=== PATIENT | female | born 1955 | race Caucasian/White ===

== ENCOUNTER 2016-08-27 02:19 | Inpatient (IN) ==
[2016-08-27] MEDS ORDERED: MORPHINE IV PRN (07:24)
[2016-08-27] MEDS ORDERED: NORCO-10 PO PRN (07:24)
[2016-08-27] MEDS ORDERED: LASIX PO SCH (09:00)
[2016-08-27] MEDS ORDERED: PLAQUENIL PO SCH (09:00)
[2016-08-27] MEDS ORDERED: PERICOLACE PO SCH (09:00)
[2016-08-27] MEDS ORDERED: BUSPAR PO SCH (09:00)
[2016-08-27] MEDS ORDERED: GABAPENTIN 800 MG PO SCH (09:00)
[2016-08-27] MEDS ORDERED: [UNRECOGNIZED DRUG - OTHER] PO SCH (09:00)
[2016-08-27] MEDS ORDERED: SYNTHROID PO SCH (09:00)
[2016-08-27] MEDS ORDERED: [UNRECOGNIZED DRUG - REMARK] NS SCH (09:00)
[2016-08-27] MEDS ORDERED: XANAX PO SCH (09:00)
[2016-08-27] MEDS ORDERED: LR 1,000 ML ONE (10:05)
[2016-08-27] MEDS ORDERED: PEPCID ONE (10:29)
[2016-08-27] MEDS ORDERED: REGLAN ONE (10:29)
[2016-08-27] MEDS ORDERED: LYRICA ONE (10:40)
[2016-08-27] MEDS ORDERED: COLACE ONE (10:40)
--- NOTE | 2016-08-27 12:34 | HISTORY AND PHYSICAL ---
CHIEF COMPLAINT: Left knee pain. HISTORY OF PRESENT ILLNESS: This is a 61-year-old female who had a left total knee arthroplasty performed in June. She originally did well and recently started having pain and swelling. She has been treated conservatively without relief. She was evaluated in the office and found to need removal of the total knee and placement of an antibiotic spacer. The surgical procedure, as well as risks and benefits were explained to the patient and at this time agreed to proceed. ALLERGIES: Penicillin and sulfa. PAST MEDICAL HISTORY: Serious illnesses: Lupus, thyroid disorder, vague history of diabetes, and obesity. PAST SURGICAL HISTORY: Breast reduction, left knee, right foot, and a tibial plateau fracture. MEDICATIONS: Xanax 1 three times a day, BuSpar 15 twice a day, Caltrate 1 a day, Flonase allergy 2 twice a day, Lasix 20 once a day, Neurontin 100 three times a day, Plaquenil 200 twice a day, probiotic 1 a day, Synthroid 175 one a day, Requip 2 at night, Senokot 1 a day. REVIEW OF SYSTEMS: HEENT: No history of CVA, migraines, loss of consciousness. She does have sleep apnea. Heart: No history of heart abnormalities. Abdomen: No history of ulcer or digestive disorders. She does have history of kidney stones. Musculoskeletal: Has history of fibromyalgia and lupus. PHYSICAL EXAMINATION: GENERAL: This is a 61-year-old female, alert and oriented. Her primary care physician is Dr. Wilks. HEENT: Pupils equal, round, reactive. NECK: Fair range of motion without adenopathy. RESPIRATORY: Respirations equal and unlabored. Clear bilaterally. HEART: Regular rate and rhythm. ABDOMEN: Soft, nontender. Bowel sounds present. EXTREMITIES: She complains of pain in her left knee area. There some swelling and discoloration around her knee. She has good sensation and pulses distally. As far as the incision is, it is well healed. IMPRESSION: Infected left total knee. PLAN: Removal of left total knee compliance with placement of antibiotic spacer. Dictated by Terry Juarez RN for Nitin Wheeler MD This chart was documented by the indicated scribe, Terry Juarez RN and accurately reflects the services I performed and decisions made by me, Nitin Wheeler MD, as attested by the provider's signature. cc: Nitin Wheeler MD
[2016-08-27] MEDS ORDERED: TORADOL ONE (14:00)
[2016-08-27] MEDS ORDERED: VANCOMYCIN ONE (14:00)
[2016-08-27] MEDS ORDERED: NEOSPORIN G.U. IRRIGANT ONE (14:01)
[2016-08-27] MEDS ORDERED: MARCAINE 0.25% PF/EPI 1:200,000 ONE (14:01)
[2016-08-27] MEDS ORDERED: EXPAREL 1.3% ONE (14:01)
[2016-08-27] MEDS ORDERED: CYKLOKAPRON 1,000 MG/NS 0 MG/0 ML IVPB ONE (14:01)
[2016-08-27] MEDS ORDERED: SODIUM CHLORIDE 0.9% ONE (14:01)
[2016-08-27] MEDS ORDERED: ZOFRAN IV PRN (14:48)
[2016-08-27] MEDS ORDERED: SODIUM CHLORIDE 0.9% INJ PRN (15:36)
[2016-08-27 15:55] LABS: URINE MICRO REVIEW NEEDED? NO; URINE SOURCE CATH
[2016-08-27 16:01] LABS: BILIRUBIN URINE NEGATIVE (NEGATIVE); BLOOD URINE TRACE (NEGATIVE); COLOR YELLOW; GLUCOSE URINE NEGATIVE (NEGATIVE); LEUKOCYTES URINE SMALL (NEGATIVE); NITRITE URINE POSITIVE (NEGATIVE); PH URINE 5.5; PROTEIN URINE 30 mg/dL (NEGATIVE); SP GRAVITY URINE 1.012; TURBIDITY URINE CLEAR (CLEAR); UROBILINOGEN URINE NORMAL (NORMAL)
[2016-08-27 16:02] LABS: UR EPITHELIAL CELLS <10 /HPF (<10); URINE BACTERIA 2+ /HPF; URINE CULTURE NEEDED? YES; URINE RBC <10 /HPF (<10); URINE WBC <10 /HPF (<10)
--- NOTE | 2016-08-27 16:11 | Diag Imaging Result Document ---
PROCEDURE NAME: CHEST-PORTABLE - 08/27/2016 PORTABLE CHEST: COMPARISON: 07/10/2015. FINDINGS: Mild central vascular prominence. The heart is not enlarged. No pleural effusions identified. No consolidation. This is basilar atelectasis. IMPRESSION: Mild pulmonary edema with basilar atelectasis.
--- NOTE | 2016-08-27 16:16 | CONSULTATION ---
DATE OF CONSULTATION: 08/27/2016 REASON FOR CONSULTATION: minimally responsive HISTORY OF PRESENT ILLNESS: Ms. Ruby is a 61-year-old, female who has had a left total knee arthroplasty performed in June 2015. Originally she had done well. She had some recent pain and swelling in the left knee, she had been treated conservatively without relief. She was evaluated in the office and found to be in need of removal of her total knee and placement of an antibiotic spacer. The patient was set for surgery today with Dr. Wheeler. However when she was brought in to the OR she was found to be minimally responsive and we were called for consultation as well as re-surgery clearance. Additional past medical history: Hypertension, sleep apnea, kidney stones, urinary tract infections, neuropathy, fibromyalgia, degenerative joint disease, diabetes mellitus type 2, anxiety and depression, obesity, hypothyroidism, chronic pain, lupus, Raynaud syndrome, and a history of MRSA Upon physical examination in the surgery holding, the patient was found to be very lethargic. She would only wake up to physical stimuli, along with saying her name. She would not say her name. She did squeeze my hand. She weakly wiggled her toes. However she would go right back to sleep. She did not answer any questions. Her pupils were equal and reactive. EKG was obtained, read by Dr. Skinner. It was unremarkable. Her most recent laboratory data was from 08/14, where she had an hemoglobin and hematocrit of 12 and 36, platelet count of 425,000, chemistry of 130, potassium of 3.9, a BUN of 18, and a creatinine of 1.0. Blood glucose was 113. Her C-reactive protein 78.45, and her carbon dioxide was 24. Again these labs were from 08/14. We have put in for new labs and diagnostics as well as an ABG. The patient will be transferred to the ICU for close monitoring. PAST MEDICAL HISTORY: 1. Hypertension. 2. Sleep apnea. 3. Kidney stones. 4. UTI. 5. Neuropathy. 6. Fibromyalgia. 7. Degenerative joint disease. 8. Diabetes mellitus type 2. 9. Anxiety. 10. Depression. 11. Obesity. 12. Hypothyroidism. 13. Chronic pain. 14. Lupus. 15. Raynaud syndrome. 16. MRSA history. PAST SURGICAL HISTORY: 1. Breast reduction. 2. Left knee. 3. Right foot. 4. Tibial plateau fracture. HOME MEDICATIONS: As per Dr. Wheeler's list: 1. Xanax 3 times a day. 2. BuSpar 15 twice a day. 3. Caltrate 1 a day. 4. Flonase Allergy twice a day. 5. Lasix 20 once a day. 6. Neurontin 100 three times a day. 7. Plaquenil 200 twice a day. 8. Probiotic 1 a day. 9. Synthroid 175 once a day. 10. Requip 2 at night. 11. Senokot 1 a day. ALLERGIES: To penicillin and sulfa. SOCIAL HISTORY: Unknown. FAMILY HISTORY: Unknown. REVIEW OF SYSTEMS: Ten point review of systems complete and negative, except for those mentioned in the HPI. PHYSICAL EXAMINATION: Vital Signs: Last set of vital signs: Temperature was 99.3 degrees, heart rate 93, respiration 18, blood pressure 161/78, O2 was 93%. General: Ms. Ruby is a 61-year- old, morbidly obese female who is lying in the bed, minimally responsive. HEENT: Pupils are equal, round, and reactive. CV: S1-S2 appreciated. Regular rate and rhythm. Respiratory: Lung sounds clear bilaterally. The patient is currently on non-rebreather. Abdominal: Abdomen is obese, soft, nontender, nondistended. Positive bowel sounds 4 quadrants. Extremities: She does have a marked area on her left knee where she was about to have surgery. There is swelling and discoloration around that left knee. She does have bilateral pedal pulses. She has some generalized lower extremity swelling. DIAGNOSTIC DATA: Laboratory and diagnostics are as per HPI from the as well as pending. ASSESSMENT AND PLAN: 1. Acute respiratory failure. We are waiting to obtain a stat chest x-ray as well as ABG, Pulmonary consult. The patient will remain on non-rebreather until we have the results of the ABG. She will be moved to the ICU. We will start bronchodilators p.r.n. for wheezing. 2. Encephalopathy, whether it be toxic versus metabolic. awaiting CT scan of the head, We are awaiting labs as well as diagnostics. Will continue in the ICU with strict neuro checks. 3. Infected hardware of left knee. Was set for removal of her left total knee and compliant with placement of antibiotic spacer. However the patient was found to be minimally responsive and the surgery was canceled. Will start IV antibiotic therapy after cultures have been obtained. Will consult for further antibiotic recommendations. 4. Early sepsis 2nd to #3 or others awaiting further lab data. 5. Obstructive sleep apnea. Aware. 6. Diabetes Mellitus type 2. Will start the patient on sliding scale insulin. 7. Methicillin-resistant Staphylococcus aureus history. Aware. 8. Further recommendation following physician evaluation. Follow laboratory data. Serial cardiac enzymes. ABG. Chest x-ray. Head CT. Dictated by MATT Carrington for Rose Mary Skinner MD cc: MD Nitin Cervantes MD David Francis, MD The patient was seen and examined by me. I agree with the assessment and plan as dictated. MTDD
[2016-08-27 16:30] LABS: ALLEN TEST YES; BE 7.2 mmoll (-3.0-3.0); BLOOD TYPE ARTERIAL; DRAW SITE R RADIAL; METHB 1.8 % (0.0-1.5); MODALITY VENTIMASK; O2(CT) 15.2 mL/dL (15.0-23.0); PCO2(98.6) 59 mmHg (35-45); PO2(98.6) 77 mmHg (60-100); SAMPLE BLOOD; SAO2 97.4 % (95.0-100.0); THB 11.4 g/dL (11.5-17.4); pH(98.6) 7.37 (7.35-7.45)
[2016-08-27 16:32] LABS: BASO% 1.1 % (0.0-0.8); EOS# 0.06 X1000 (0.0-0.7); EOS% 0.5 % (0.0-10.0); HEMATOCRIT 31.4 % (37.0-47.0); HEMOGLOBIN 10.2 g/dL (12.0-16.0); IMM GRAN% 8.2 % (0.0-0.5); LYMPH# 2.29 X1000 (1.2-3.4); LYMPH% 18.8 % (20.5-51.1); MANUAL DIFF NEEDED? YES; MCHC 32.5 g/dL (33-37); MCV 86.3 FL (81-99); MONO# 0.77 X1000 (0.11-0.59); MONO% 6.3 % (1.7-9.3); MPV 9.7 FL (7.4-10.4); NEUT% 65.1 % (42.2-75.2); PLT 341 X1000 (130-400); RBC 3.64 XMIL (4.2-5.4)
[2016-08-27 16:36] LABS: ALBUMIN 3.3 g/dL (3.5-5.0); CALCIUM 8.9 mg/dL (8.8-10.2); MAGNESIUM 2.3 mg/dL (1.5-2.7); POTASSIUM 3.9 mmol/L (3.5-5.1); TOTAL BILIRUBIN 0.22 mg/dL (0.20-1.00); TOTAL PROTEIN 6.4 g/dL (6.3-8.3)
[2016-08-27 16:37] LABS: INR 1.05; PROTIME 11.1 Seconds (9.2-11.7); PTT 24.3 Seconds (22.0-36.0)
[2016-08-27] MEDS ORDERED: FENTANYL ONE (16:39)
[2016-08-27] MEDS ORDERED: DIPRIVAN 1% ONE (16:39)
--- NOTE | 2016-08-27 16:47 | Diag Imaging Result Document ---
PROCEDURE NAME: HEAD W/O CONTRAST - 08/27/2016 CT HEAD WITHOUT CONTRAST: FINDINGS: A dose reduction protocol was used. No comparison exam. There is no evidence of intracranial hemorrhage, mass effect, midline shift or hydrocephalus. There is no evidence of infarct although acute infarcts may not be immediately visible. Visualized portions of paranasal sinuses and mastoid air cells appear clear. IMPRESSION: No visible acute intracranial abnormality. No hemorrhage or mass effect.
[2016-08-27 16:54] LABS: HEMOGLOBIN A1C 16.1 % (4.8-6.0)
[2016-08-27 17:00] LABS: BANDS 5 % (0-1); BASO 1 % (0-1); EOS 2 % (1-10); LYMPHS 16 % (21-51); METAMYELOCYTES 6 %; MONO 2 % (1-9)
[2016-08-27] MEDS: 1/2 NS 1,000 ML IV SCH (17:35)
[2016-08-27] MEDS ORDERED: VANCOMYCIN IV PER PHARMACY MISC SCH (18:15)
[2016-08-27] MEDS: DUONEB (A & A) INH SCH ×2 (19:32→22:40)
[2016-08-27] MEDS: AZACTAM 2 GM in NS 100 ML IV SCH (20:16)
--- NOTE | 2016-08-27 20:36 | CONSULTATION ---
DATE OF CONSULTATION: 08/27/2016 CONCLUSION: The patient was admitted to the hospital for surgery on the left knee, it was felt that it was infected. She developed altered mental status and the surgery was canceled. The cause of the altered mental status is uncertain. I think possible sepsis which might have arisen from the patient's left knee is a possibility also. Patient appears to have a urinary tract infection which may be causing her altered mental status. RECOMMENDATIONS: I agree with placing the patient on vancomycin, I have also ordered the patient to get aztreonam in view of the patient's severe penicillin allergy. Also, I have had gram- negative coverage with aztreonam. PRESENT ILLNESS: The patient is unable to provide a history. No family member is present. As mentioned above, the patient was admitted to the hospital to undergo removal of the patient's left total knee arthroplasty and placement of an antibiotic impregnated spacer. She had an altered mental status and the surgery was postponed. She is in the Intensive Care Unit now. She is somewhat obtunded. She did open her eyes and talk a little bit while I was performing an arthrocentesis of the left knee. The patient was unable to provide a history. The history was taken from a review of the chart. PAST MEDICAL HISTORY: Positive for systemic lupus, thyroid disease, diabetes and obesity. PAST SURGICAL HISTORY: Positive for breast reduction, left total knee arthroplasty, right foot surgery and a tibial plateau toe. ALLERGIES: Penicillin and sulfa. HOME MEDICATIONS: Xanax, BuSpar, Caltrate, Flonase, Lasix, Neurontin, Plaquenil, probiotics, Synthroid, Requip and Senokot. REVIEW OF SYSTEMS: Unable to obtain. PHYSICAL EXAMINATION: Vital Signs: Temperature is 97.6 degrees, pulse 67, respirations 20, blood pressure 163/83. General: This is an obese, middle-aged female. She is in no acute distress. Patient did not respond much to verbal stimuli. Head, eyes, ears, nose, throat: No drainage noted from the nose or ears. Neck: No meningismus. Thorax: Increased AP diameter of the chest. Lungs: Clear to auscultation. Cardiovascular: Heart rate is regular. Vascular: Peripheral pulses are palpable. Abdomen: Soft and nontender. Extremities: The left knee did seem swollen. I cleaned the knee and under sterile conditions I attempted an arthrocentesis. I only obtained a few drops of serous fluid which I have sent to the microbiology lab for culture. Neurologic: The patient is very lethargic. She did respond once when I aspirated her knee but it was just regular speech. She did not follow any of the requests I asked her to. There was no tremor. Integument: No rash noted. Thank you for the consultation. cc: MD Rose Mary Ramachandran MD
[2016-08-27] MEDS ORDERED: NON-FORMULARY MED (Ropinirole Hcl [Requip] 2 MG) PO SCH (21:00)
[2016-08-27] MEDS ORDERED: VANCOMYCIN 2,500 MG in NS 500 ML IV SCH (21:00)
[2016-08-27] MEDS: HUMULIN R SUBQ SCH (21:03)
[2016-08-28] MEDS: DUONEB (A & A) INH SCH ×6 (03:02→22:34)
[2016-08-28] MEDS: AZACTAM 2 GM in NS 100 ML IV SCH ×3 (03:47→20:03)
[2016-08-28 04:23] LABS: ALLEN TEST YES; BE 6.6 mmoll (-3.0-3.0); BLOOD TYPE ARTERIAL; DRAW SITE R RADIAL; METHB 1.7 % (0.0-1.5); O2(CT) 13.3 mL/dL (15.0-23.0); PO2(98.6) 76 mmHg (60-100); SAMPLE BLOOD; SAO2 98.5 % (95.0-100.0); THB 9.9 g/dL (11.5-17.4); pH(98.6) 7.41 (7.35-7.45)
[2016-08-28 04:24] LABS: MODALITY CANNULA; PCO2(98.6) 51 mmHg (35-45)
--- NOTE | 2016-08-28 05:14 | EKG Report ---
Test Performed on : 08/27/2016 2:51:40 PM Test Reason : chest pain Blood Pressure : / mmHG Vent. Rate : 066 BPM Atrial Rate : 066 BPM P-R Int : 166 ms QRS Dur : 084 ms QT Int : 440 ms P-R-T Axes : 035 -07 008 degrees QTc Int : 461 ms Normal sinus rhythm. Moderate voltage criteria for LVH, may be normal variant Borderline ECG When compared with ECG of 10-JUL-2015 12:06, Nonspecific T wave abnormality no longer evident in Lateral leads Confirmed by Brannon Grimm MD ([id number]) on 08/29/2016 12:04:45 PM
[2016-08-28] MEDS: PROTONIX IV SCH (06:12)
[2016-08-28] MEDS: HUMULIN R SUBQ SCH ×4 (06:12→20:11)
[2016-08-28] MEDS: SYNTHROID IV SCH (06:12)
[2016-08-28] MEDS: SODIUM CHLORIDE 0.9% INJ SCH (06:12)
[2016-08-28 07:10] LABS: BASO% 0.6 % (0.0-0.8); EOS# 0.09 X1000 (0.0-0.7); EOS% 0.7 % (0.0-10.0); HEMOGLOBIN 9.9 g/dL (12.0-16.0); IMM GRAN% 7.4 % (0.0-0.5); LYMPH# 2.03 X1000 (1.2-3.4); LYMPH% 16.8 % (20.5-51.1); MANUAL DIFF NEEDED? YES; MCH 27.9 PG (27-31); MCHC 31.9 g/dL (33-37); MCV 87.3 FL (81-99); MONO# 0.75 X1000 (0.11-0.59); MONO% 6.2 % (1.7-9.3); MPV 9.6 FL (7.4-10.4); NEUT% 68.3 % (42.2-75.2); PLT 378 X1000 (130-400); RBC 3.55 XMIL (4.2-5.4)
[2016-08-28 07:17] LABS: CALCIUM 8.4 mg/dL (8.8-10.2); POTASSIUM 3.9 mmol/L (3.5-5.1)
--- NOTE | 2016-08-28 07:45 | Diag Imaging Result Document ---
PROCEDURE NAME: CHEST-PORTABLE - 08/28/2016 SINGLE FRONTAL RADIOGRAPH OF THE CHEST: COMPARISON: 08/27/2016. FINDINGS: Inspiration is suboptimal. There is bibasilar subsegmental atelectasis that is similar to the previous study. Pulmonary venous congestion and/or vascular crowding is stable to marginally improved. No new consolidations are identified. Cardiac silhouette is stable. IMPRESSION: Stable to marginal improvement of pulmonary venous congestion. Otherwise, unchanged.
[2016-08-28 08:24] LABS: BANDS 2 % (0-1); HYPOCHROM 1+; LYMPHS 20 % (21-51); MONO 8 % (1-9)
[2016-08-28] MEDS ORDERED: SYNTHROID PO SCH (09:00)
[2016-08-28] MEDS: 1/2 NS 1,000 ML IV SCH ×2 (09:21→10:51)
--- NOTE | 2016-08-28 09:41 | CONSULTATION ---
DATE OF CONSULTATION: 08/28/2016 HISTORY OF PRESENT ILLNESS: Ms. Ruby is 61 years old, and she had a period of inattention and possible altered awareness yesterday. History from the patient is that she remembers feeling well in the morning, coming to the hospital for planned knee surgery, taking all of her medicines exactly as usual, exactly as prescribed. She remembers being prepared for surgery, and she does not have clear memory of anything else until some time in the middle of the night when nurse told her she was glad to see her awake. She has clear memory of the events of this morning. She does not recall feeling odd, sleepy, impaired or out of touch. History from family is that she was noted to seem well around 11:30 a.m. When family returned from lunch, they initially noted her to seem to be sleeping. While family was in the room, nursing staff attempted to wake the patient and were not able to get her awake. She gradually recovered later in the day. There is history of some episodes of inattention and dozing in years past, which family had attributed to medication effects. These would usually be a few minutes or several minutes. She told me she had not had 1 of these episodes in about a year, since there was medication adjustment, specifically stopping opiates. reports her appearance yesterday was somewhat similar to the appearance she had with these previos brief episodes, except that the episode yesterday was much longer duration and "she just did not look like herself." There is no history of serious head injury, previous diagnosed stroke, seizure, other neurologic event. Workup here includes noncontrast CT of the head reported unremarkable. Lab work shows WBC count 12,000, mild anemia, PCO2 59%, blood sugars 230s-240s, A1c 16.1%. She has been afebrile. Systolic blood pressures have ranged 140s to 160s. Heart rate has ranged 90s down to 60s. HOME MEDICINES: Home medicines include alprazolam, ropinirole, gabapentin, buspirone, others We do not have urine drug screen this admission. PAST HISTORY: Remarkable for hypertension, sleep apnea, fibromyalgia, diabetes mellitus, peripheral neuropathy, degenerative joint problems, lupus, hypothyroidism, depression. On exam now, Ms. Ruby is awake, alert, attentive, oriented, conversant, appropriate. Speech is not dysarthric. Language function is intact. Memory, except for the events of yesterday, is good. Head and neck are unremarkable. Visual kent are full, tested by confrontational finger counting. Extraocular movements are full. Facial motility is symmetric. Gag is intact. Tongue is midline. She can hear. Shoulder shrug is equal. Strength is normal in the arms, not tested in the legs. She did well on [id number] testing. She reports good pinprick appreciation over the hands. Hands are warm. I did not test her gait. IMPRESSION: Period of poor alertness, possibly poor attention yesterday. This seems to be completely resolved now. The etiology is not certain. Featuresare not typical of transient global amnesia. This seems to be have been a global encephalopathy without focal features, without clinical evidence of increased intracranial pressure or infection, without evidence of mass or focal lesion. The PCO2 is noted. She used opiates in the past, but seemed to be improved after that was stopped, and we do not have opiate on medicine list now. This episode could be related to transient toxic or metabolic disturbance, but I do not have a specific explanation. I am glad to see her recovered now. I do not have any urgent suggestion from neurologic standpoint. If she has more episodes, we might consider brain magnetic resonance imaging, electroencephalogram. Thanks for asking me to see Ms. Ruby. cc: MD Rose Mary Perry III, MD MTDD
--- NOTE | 2016-08-28 10:09 | CONSULTATION ---
DATE OF CONSULTATION: 08/28/2016 REFERRING PHYSICIAN: Rose Mary Skinner MD CHIEF COMPLAINT: Left knee infection. HISTORY OF PRESENT ILLNESS: This is a 61-year-old female with a past medical history of lupus, thyroid disorder, and obesity, that was sent to the hospital for a left knee infection. She was supposed to have a total left knee removal with insertion of antibiotic spacer. Essentially became altered from an apparent sepsis. The patient appears to be in no apparent respiratory distress at this time. REVIEW OF SYSTEMS: Unable to obtain secondary to patient's altered mental status. PAST MEDICAL HISTORY: As mentioned in history of present illness; otherwise, noncontributory. PAST SURGICAL HISTORY: Breast reduction left knee, right foot, and tibial plateau fracture. FAMILY HISTORY: Unknown. ALLERGIES: Penicillin and sulfa. SOCIAL HISTORY: Unknown. PHYSICAL EXAMINATION: Vital Signs: Temperature 98 degrees, heart rate 73, respiratory rate 24, blood pressure 158/77, oxygen saturation 95%. HEENT: Normocephalic, atraumatic. Cardiovascular: Regular rate and rhythm. Chest: Reduced entry. Abdomen: Soft, bowel sounds present. Extremities: Distal pulses palpable. There is some swelling and discoloration around her knee. LABS AND INVESTIGATIONS: WBC 12.09, RBC 3.55, hemoglobin 9.9, hematocrit 31. Platelet count 378,000. Sodium 143, potassium 3.9, chloride 98, CO2 27, anion gap 18. BUN 13 , creatinine 1, glucose 232. Blood gas reveals a pH 7.41, pCO2 of 51, pO2 of 76, HC03 of 30. Saturated oxygen of 99. Chest x-ray performed on 08/28/2016 shows stable to marginal improvement of the pulmonary venous congestion; otherwise, unchanged. ACTIVE MEDICATIONS: DuoNeb, Humulin R, Synthroid, vancomycin, Zofran, Protonix , and aztreonam. ASSESSMENT AND PLAN: This is a 61-year-old female with a past medical history mentioned in the history of present illness, that presented to the hospital with a left knee infection. COPD, TORSTEN, septic arthritis. She does have some global encephalopathy which is likely secondary to the infection. She is covered with broad-spectrum antibiotics, bronchodilators, and GI prophylaxis. Further recommendations pending diagnostic studies. Thank for the courtesy of this consult. cc: MD Rose Mary Chavarria MD [facility]
[2016-08-28] MEDS ORDERED: INSULIN PEN NEEDLES ONE (11:43)
[2016-08-28] MEDS: LEVEMIR SUBQ SCH ×2 (11:45→20:07)
--- NOTE | 2016-08-28 12:02 | ECHO REPORT ---
ORDER DATE: 08/27/2016 INTERPRETING PHYSICIAN: Dr. Beckett CLINICAL INDICATIONS: A 61-year-old female with mental status changes, morbid obesity. M-MODE MEASUREMENTS: Right ventricle: 2.1 cm. Left ventricle end diastole: 5.7 cm. Left ventricle end systole: 4.1 cm. Posterior wall: 0.9 cm. Interventricular septum: 1.0 cm. Left atrium: 4.7 cm. Aortic root: 3.4 cm. SUMMARY OF 2-DIMENSIONAL IMAGIN. The study is technically difficult. This patient weighs 300 pounds, and she has mental status changes. The windows were very poor, especially the apical ones. 2. The global ejection fraction of the left ventricle appears to be normal. It is visually estimated to be in the order of 55% to 60%. No definite wall motion abnormality appears to be present. 3. The right ventricle appears to be normal. Epicardial fat pad is present. 4. The aortic valve appears to be grossly normal, color flow mapping unremarkable. 5. The mitral valve also appears to be normal, color flow mapping unremarkable. Pulsed wave Doppler of mitral inflow is normal. The tissue Doppler of septal and lateral mitral annulus averages 6 cm. There is no definite diastolic dysfunction. 6. The tricuspid valve shows trace of regurgitation. The inferior vena cava is not dilated. The pulmonary pressure is normal. 7. The pulmonic valve appears to be normal. 8. There is no evidence of masses nor thrombus. Clinical correlation recommended. cc: MD Rose Mary Kirk MD
[2016-08-28] MEDS ORDERED: TYLENOL PO PRN (14:32)
--- NOTE | 2016-08-28 15:18 | PROGRESS NOTE ---
DATE: 08/28/2016 SUBJECTIVE: The patient is awake and alert. She states that she does not remember what happened yesterday. OBJECTIVE: Vital Signs: Temperature 99.6 degrees, blood pressure 144/71, heart rate 77, respirations 28, O2 saturations 93% on 4 L nasal cannula. General: This is a morbidly obese, elderly female, lying in bed in no acute distress. Head: Normocephalic, atraumatic. Heart: S1, S2. Normal. Regular rate and rhythm. Lungs: Equal air entry bilaterally. No crackles, no wheezing, no rales. Abdomen: Positive bowel sounds. Soft, obese, nontender, nondistended. Extremities: +1 edema in the lower extremities. Neurologic: The patient is alert and oriented x3. No focal neurologic deficits noted. LABS: White blood cell count 12, hemoglobin 9.9, hematocrit 31, platelets 378. Sodium 143, potassium 3.9, chloride 98, CO2 27, BUN 13, creatinine 1, glucose 232, calcium 8.4. ASSESSMENT AND PLAN: 1. Metabolic encephalopathy. Resolved. This was most likely secondary to an underlying infection. The patient is currently on intravenous antibiotics and improving. 2. Urinary tract infection. The urine culture is growing gram-negative rods. The patient is currently on intravenous antibiotic therapy as directed by Dr. Jaffe. 3. Hardware infection involving the left knee. Management as per the orthopedic surgeon. 4. Morbid obesity. Aware. 5. Obstructive sleep apnea. Aware. 6. Uncontrolled diabetes mellitus type 2. The patient states that she is not on any diabetic therapy at home. Start the patient on Levemir 25 units twice a day. cc: Rose Mary Skinner MD [facility]
--- NOTE | 2016-08-28 15:48 | PROGRESS NOTE ---
DATE: 08/28/2016 SUBJECTIVE: Ms. Ruby is currently in the Intensive Care Unit. Her white count is 12.09 with a hemoglobin of 9.9 and hematocrit of 31. Microbiology results show gram-negative alek from her urine specimen and no growth right now in the synovial fluid that was obtained. OBJECTIVE: Vital signs are stable. Heart rate 77, respiratory rate 24, blood pressure 144/71, saturating 93% on nasal cannula, temp was 99.6. PLAN: We will plan to proceed with Ms. Ruby's surgery tomorrow. I have spoken to her and she is alert and oriented, much improved from yesterday. We will plan to perform her surgery tomorrow about midday. Currently she is stable and has some swelling about the left knee but no redness. It is a little bit warm to the touch but we will plan I and D. We plan on placing antibiotic beads and a temporary spacer in there until the infection is resolved. Dictated by MATT Tellez for Nitin Wheeler MD cc: MATT Tellez MD Katherine Takundwa, MD
--- NOTE | 2016-08-28 17:12 | CONSULTATION ---
DATE OF CONSULTATION: 08/28/2016 REASON FOR CONSULTATION: This is a consultation for a preoperative cardiac evaluation. The patient is going to undergo left total knee revision/replacement. HISTORY OF PRESENT ILLNESS: Ms. Ruby is a pleasant 61-year-old female that came into the hospital for elective left total knee replacement/revision. When she was in the holding area before the surgery at about 1 or 2 o'clock in the afternoon she appeared to be very lethargic and she would not wake up. She had a period where she was somewhat dysarthric with clear alteration of mental status. The patient at that time did not complain of any pain. They chose to cancel the surgery and admit her to the Intensive Care Unit for observation. They have consulted Dr. Nguyễn from Neurology who has seen the patient in consultation. They have also consulted with Dr. Gonzalez from Pulmonary. She has been evaluated by them. The reason for this alteration of mental status is still unclear. Of note, they have done a urine culture that is growing gram- negative rods. They have also consulted Dr. Vince Jaffe from Infectious Disease who has the opinion that the patient has potentially sepsis. The patient at this time is awake. She is able to answer questions. She is a little sleepy. She at moments appears to drift into sleep but then once the family walks into the room she is more awake. Her brother and her were in the room with her and she appeared to be much more awake. She is not having any pain in the chest. She denies having dyspnea. She denies having dizziness or palpitations. She denies having any swelling of her legs and no claudication. She denies having any previous cardiac history. Her major complaint is pain in the left knee. PAST MEDICAL HISTORY: Her past history is positive for hypertension for some time. She has also been diagnosed with obesity. She still is morbidly obese, however, she says that she has lost 60 pounds over the past 1 year. She has rheumatoid arthritis. She has never had a stroke or a heart attack. No TIA. Her history is positive for pneumonia in the remote past. She has had kidney stones in the remote past. She has had arthritis of the knee and last year in June she underwent left total knee replacement and subsequently about 3 months ago or so she developed swelling of her left knee with the suspicion for infection. This has been evaluated by Dr. Wheeler. The patient had a questionable episode of near syncope in the past. PAST SURGICAL HISTORY: Besides the knee replacement includes carpal tunnel on the left hand and in the right ankle she has had open repair. SOCIAL HISTORY: Her social history is positive for being for 36 years. She had one son who . FAMILY HISTORY: Her father had a myocardial infarction and another brother had a myocardial infarction. HOME MEDICATIONS: Her home medications include alprazolam 1 mg three times a day, BuSpar 15 mg twice a day, fluticasone two sprays twice a day, furosemide 20 mg daily, gabapentin 100 mg three times a day, Plaquenil 200 mg twice a day, levothyroxine 175 mcg daily, and Requip 2 mg at bedtime. ALLERGIES: Penicillin, sulfa drugs, and tape. REVIEW OF SYSTEMS: Review of systems is basically limited by her knee pain. No other limitations. She says that since they replaced her knee over a year ago she was able to lose 60 pounds and she was much more active. PHYSICAL EXAMINATION: VITAL SIGNS: Blood pressure is 144/71, temperature 99.6, pulse 77, and respirations 20. GENERAL: She is awake, obese, alert, oriented, and in no distress. HEENT: Unremarkable. CHEST: Clear to auscultation and percussion. CARDIOVASCULAR: Heart sounds are regular and rhythmic. No gallop or murmur. ABDOMEN: Nontender. Obese. No masses or hepatomegaly. EXTREMITIES: The extremities show positive edema. The left knee is swollen and tender with increased temperature consistent with the diagnosis of arthritis. NEUROLOGICAL: She moves all extremities. LABORATORY DATA: Blood work from today: Her CK and troponins are negative. BUN is 13, creatinine 1.0, sodium 143, and potassium 3.9. White count is 12,000. Her neutrophils are 69% and bands are 2% which is high. Lymphocytes are 20% which is low. Blood Gas: On admission pCO2 was 59 and today it is 51; pH is 7.41 and pO2 76. She is on 4 L nasal cannula. EKG has been done and shows sinus rhythm with voltage criteria for LVH. No acute ischemic changes. Echocardiogram was done yesterday which I have looked at and I do not see any evidence of any wall motion abnormality. Her echocardiogram is really unremarkable. I requested a venous ultrasound of the lower extremities to exclude deep venous thrombosis and this study was done today and came back negative. IMPRESSION: 1. Patient who presented with complaints of altered mental status. The etiology of this is unclear. The patient has a history of sleep apnea syndrome with CO2 retention. 2. Abnormal EKG with left ventricular hypertrophy. Echocardiogram done 08/27/16 shows no significant abnormality. 3. Positive family history of coronary artery disease. 4. Morbid obesity. 5. History of diabetes mellitus in the past. 6. Septic arthritis of the left knee. 7. Positive urine culture, gram-negative rods. RECOMMENDATIONS: At this point in time I would assume that her mental status change is probably related to her systemic infection. Cardiac-arreguin I do not see any obvious abnormality. I think she may proceed with her proposed surgery whenever Dr. Wheeler and the rest of the team of physicians who are looking after her deem that it is safe to do so. From a cardiology viewpoint,her risk for perioperative cardiac complications is low. Further advice will be forthcoming. Thank you for the opportunity to participate in her evaluation. cc: MD Rose Mary Kirk MD [facility]
[2016-08-29] MEDS: 1/2 NS 1,000 ML IV SCH ×2 (00:18→14:34)
[2016-08-29] MEDS: DUONEB (A & A) INH SCH ×6 (02:45→23:04)
[2016-08-29] MEDS: AZACTAM 2 GM in NS 100 ML IV SCH ×2 (04:00→12:00)
[2016-08-29 04:38] LABS: ALLEN TEST YES; BE 5.8 mmoll (-3.0-3.0); BLOOD TYPE ARTERIAL; DRAW SITE R RADIAL; METHB 1.7 % (0.0-1.5); O2(CT) 13.1 mL/dL (15.0-23.0); PCO2(98.6) 45 mmHg (35-45); PO2(98.6) 99 mmHg (60-100); SAMPLE BLOOD; SAO2 99.4 % (95.0-100.0); THB 9.6 g/dL (11.5-17.4); pH(98.6) 7.44 (7.35-7.45)
[2016-08-29 04:39] LABS: MODALITY CANNULA
[2016-08-29 05:31] LABS: BASO% 0.5 % (0.0-0.8); EOS# 0.16 X1000 (0.0-0.7); EOS% 1.2 % (0.0-10.0); HEMATOCRIT 29.4 % (37.0-47.0); HEMOGLOBIN 9.3 g/dL (12.0-16.0); IMM GRAN# 0.84 X1000 (0.0-0.04); IMM GRAN% 6.3 % (0.0-0.5); LYMPH# 1.85 X1000 (1.2-3.4); LYMPH% 13.8 % (20.5-51.1); MANUAL DIFF NEEDED? YES; MCH 27.7 PG (27-31); MCHC 31.6 g/dL (33-37); MCV 87.5 FL (81-99); MONO# 0.62 X1000 (0.11-0.59); MONO% 4.6 % (1.7-9.3); MPV 9.1 FL (7.4-10.4); NEUT% 73.6 % (42.2-75.2); PLT 401 X1000 (130-400); RBC 3.36 XMIL (4.2-5.4)
[2016-08-29 05:38] LABS: CALCIUM 8.4 mg/dL (8.8-10.2); POTASSIUM 3.5 mmol/L (3.5-5.1)
[2016-08-29] MEDS: SYNTHROID IV SCH (06:14)
[2016-08-29] MEDS: SODIUM CHLORIDE 0.9% INJ SCH (06:14)
[2016-08-29] MEDS: PROTONIX IV SCH (06:15)
[2016-08-29] MEDS: HUMULIN R SUBQ SCH ×4 (06:23→20:31)
[2016-08-29 07:56] LABS: BANDS 2 % (0-1); LYMPHS 10 % (21-51)
[2016-08-29] MEDS: LEVEMIR SUBQ SCH ×2 (07:59→20:32)
--- NOTE | 2016-08-29 08:11 | Diag Imaging Result Document ---
PROCEDURE NAME: CHEST-PORTABLE - 08/29/2016 SINGLE FRONTAL RADIOGRAPH OF THE CHEST: COMPARISON: 08/28/2016. FINDINGS: There is poor inspiration. Bibasilar subsegmental atelectasis is stable. There are no new consolidations. Cardiac silhouette is stable. IMPRESSION: Stable chest.
--- NOTE | 2016-08-29 08:12 | PROGRESS NOTE ---
DATE: 08/29/2016 Ms. Ruby is asleep, easily wakes, remained alert and attentive during my time at the bedside. She is completely oriented. Speech is not dysarthric. There is no focal neurologic finding on limited exam. There is no meningismus. Again, I do not have a definite explanation for her recent transient global encephalopathy. Features were not typical of an isolated transient global amnesia episode. I do not think we would expect such level of altered mental state simply with sepsis, but there may have been other factors including medications, hyperglycemia, possibly other metabolic features. At any rate, she is recovered now. Seems completely back to baseline and I do not have any neurologic objection to proceeding with planned surgery. Thanks for asking me to see Ms. Ruby. cc: MD Rose Mary Perry III, MD MTDD
[2016-08-29] MEDS ORDERED: VANCOMYCIN ONE ×2 (10:35→11:52)
[2016-08-29] MEDS ORDERED: NEOSPORIN G.U. IRRIGANT ONE (10:36)
[2016-08-29] MEDS ORDERED: TOBRAMYCIN POWDER ONE (10:45)
[2016-08-29] MEDS ORDERED: TOBRAMYCIN POWDER MISC ONE (10:45)
[2016-08-29] MEDS ORDERED: CYKLOKAPRON 1,000 MG/NS 1,000 MG/100 ML IVPB ONE ×2 (11:11→11:12)
--- NOTE | 2016-08-29 11:25 | PROGRESS NOTE ---
DATE: 08/29/2016 SUBJECTIVE: The patient is awake and alert. No acute events noted overnight. OBJECTIVE: Vital signs: Temperature 98.9 degrees, blood pressure 131/63, heart rate 77, respirations 15, O2 saturation is 93% on 4 L nasal cannula. General: This is a morbidly obese female, lying in bed in no acute distress. HEENT: Head normocephalic, atraumatic. Heart: S1, S2 normal. Regular rate and rhythm. Lungs: Clear to auscultation bilaterally. Abdomen: Positive bowel sounds. Soft, nontender, nondistended. Extremities: No edema. No cyanosis. No calf tenderness. Neurologic: The patient is alert and oriented x3.. LABORATORY DATA: White blood cell count 13, hemoglobin 9.3, hematocrit 29, platelets 401,000. Sodium 141, potassium 3.5, chloride 102, CO2 of 28, BUN 13, creatinine 1, glucose 142, calcium 8.4. ASSESSMENT AND PLAN: 1. Metabolic encephalopathy, resolved. 2. Urinary tract infection secondary to Escherichia coli. Continue on intravenous antibiotic therapy as directed by Dr. Jaffe. 3. Hardware infection of the left knee. Management as per the orthopedic surgeon. Continue IV antibiotic therapy as directed by . 4. Morbid obesity, aware. 5. Obstructive sleep apnea, aware. 6. Uncontrolled diabetes mellitus type 2. Continue on Levemir 25 units subcutaneously twice a day. cc: Rose Mary Skinner MD [facility]
[2016-08-29] MEDS ORDERED: LR 1,000 ML ONE (13:22)
[2016-08-29] MEDS ORDERED: OFIRMEV 1000 MG/ISOTONIC SOLN 1,000 MG/100 ML BOTTLE ONE (13:22)
[2016-08-29] MEDS ORDERED: DECADRON ONE (13:22)
[2016-08-29] MEDS ORDERED: XYLOCAINE-MPF 2% ONE (13:22)
[2016-08-29] MEDS ORDERED: CLAVE SECONDARY SET 11953 ONE (13:22)
[2016-08-29] MEDS: DILAUDID ONE ×6 (13:23→14:35)
[2016-08-29] MEDS ORDERED: DIPRIVAN 1% ONE (13:25)
[2016-08-29] MEDS ORDERED: FENTANYL ONE (13:25)
[2016-08-29] MEDS ORDERED: DILAUDID PCA VIAL ONE (13:45)
[2016-08-29] MEDS ORDERED: NS 1,000 ML ONE (13:54)
--- NOTE | 2016-08-29 14:06 | OPERATIVE NOTE ---
PROCEDURE DATE: 08/29/2016 PREOPERATIVE DIAGNOSIS: Infected left total knee arthroplasty. POSTOPERATIVE DIAGNOSIS: Infected left total knee arthroplasty. PROCEDURE: Removal left total knee arthroplasty with debridement and irrigation, and insertion of temporary knee spacer and antibiotic beads. SURGEON: Marlene Wheeler MD. RN BUILDING: MATT Newton. ANESTHESIA: General. COMPLICATION: None. PROCEDURE IN DETAIL: A 61-year-old female with an infection of a left total knee presents for surgical implant removal, and debridement and irrigation. Risks and benefits were discussed with the patient preoperatively and she is willing to proceed. She was taken to the operating room and satisfactory anesthesia obtained. The left knee was prepped and draped in the usual sterile fashion and a time-out taken to confirm operative site, procedure, and patient. The leg was wrapped with an Esmarch up to the knee level and the tourniquet inflated with 350 mmHg. The previous anterior approach was utilized and opened up, and a medial arthrotomy created. Cultures were taken at this point for aerobic and anaerobic cultures as well as Gram stain. Dark-colored, cloudy joint fluid was noted indicative of a chronic infection. The implant was noted to be relatively well fixed to the bone. Any fibrous tissue was debrided, and medial and lateral collateral retractors placed to protect the collateral ligaments. The femoral component was removed with osteotomes nearly en bloc, with minimal bone destruction. Tibial polyethylene was then removed with an osteotome, and the tibial baseplate removed using an osteotome around with minimal bone destruction. Any fibrous tissue or inflammatory tissue was gently debrided, with care taken to avoid dissection near any neurovascular structures. The wound was then copiously irrigated with irrigant. Antibiotic beads were then placed down the intramedullary canal on each side. Temporary spacer with a Bouchra size 7 left posterior stabilized femoral component, and a size 7, 12 mm thick posterior stabilized poly was loosely cemented after the cement had partially cured onto the end of the bone to act as a temporary spacer. The knee was then irrigated again and the joint capsule closed over a drain brought out through the anterolateral retinaculum using #1 Vicryl. The subcutaneous was closed with 2-0 Vicryl and the skin with skin carlin. Sterile dressings completed the closure, and the patient was recovered from anesthesia and transferred to the recovery room in stable condition. No intraoperative complications were noted. Instrument count and sponge count were correct at the time of closure. cc: MD Rose Mary Watkins MD
[2016-08-29] MEDS ORDERED: PHENERGAN IV PRN (14:18)
[2016-08-29] MEDS ORDERED: DILAUDID PCA VIAL IV PRN (14:18)
[2016-08-29] MEDS ORDERED: NARCAN IV PRN (14:18)
[2016-08-29] MEDS ORDERED: BENADRYL IV PRN (14:18)
[2016-08-29] MEDS ORDERED: SODIUM CHLORIDE 0.9% INJ PRN (14:18)
[2016-08-29] MEDS: NS 1,000 ML IV SCH (14:34)
[2016-08-29] MEDS: LR 1,000 ML IV SCH (14:36)
--- NOTE | 2016-08-29 18:12 | PROGRESS NOTE ---
DATE: 08/29/2016 SUBJECTIVE: The patient initially was admitted to the hospital for a left knee surgery. She became septic and it was felt that she may have sepsis either from the knee or from a urinary tract infection. MEDICATIONS: The patient is receiving aztreonam. PHYSICAL EXAMINATION: Vital Signs: Temperature is 97.5 degrees. Pulse 79, respirations 24, blood pressure 154/85. General: This is an obese middle-aged female who is in no acute distress. Lungs: Clear to auscultation. Cardiovascular: Regular heart rate. Abdomen: Soft and nontender. Extremities: There is a large dressing around the left knee. The dressing is intact. LABORATORY AND X-RAY: There is no new x-ray today. The urine culture grew Escherichia coli. The patient's blood gases showed a pH of 7.44, PO2 of 99, and a pCO2 of 45. Creatinine is 1. GFR is 57. CBC shows a white count of 13,420, hemoglobin 9.3, and platelet count 401,000. All of the Gram stains taken at surgery today from removal of the patient's prosthesis do not show any organisms. Cultures are pending. ASSESSMENT AND PLAN: 1. The patient has an Escherichia coli urinary tract infection. I have switched her from aztreonam intravenously to Levaquin p.o. I am waiting for the culture results from surgery on the patient's knee. Comorbidities include that she has systemic lupus and diabetes and obesity. cc: MD Rose Mary Ramachandran MD
[2016-08-29] MEDS: LEVAQUIN PO SCH (20:31)
[2016-08-29] MEDS ORDERED: PERICOLACE PO SCH (21:00)
[2016-08-30] MEDS: NS 1,000 ML IV SCH ×2 (02:30→16:48)
[2016-08-30] MEDS: DUONEB (A & A) INH SCH ×4 (03:41→22:59)
[2016-08-30 05:04] LABS: BASO% 0.1 % (0.0-0.8); HEMATOCRIT 29.4 % (37.0-47.0); HEMOGLOBIN 9.4 g/dL (12.0-16.0); IMM GRAN# 0.48 X1000 (0.0-0.04); IMM GRAN% 2.3 % (0.0-0.5); LYMPH% 4.3 % (20.5-51.1); MANUAL DIFF NEEDED? YES; MCH 27.8 PG (27-31); MONO# 0.69 X1000 (0.11-0.59); MONO% 3.3 % (1.7-9.3); MPV 8.9 FL (7.4-10.4); PLT 466 X1000 (130-400); RBC 3.38 XMIL (4.2-5.4)
[2016-08-30 05:30] LABS: AGAP 15; BUN 14 mg/dL (8-22); CALCIUM 8.7 mg/dL (8.8-10.2); CHLORIDE 97 mmol/L (98-107); COSMO 279; POTASSIUM 4.9 mmol/L (3.5-5.1); SODIUM 136 mmol/L (136-145); TCO2 24 mmol/L (25-35)
[2016-08-30] MEDS: XARELTO PO SCH (05:31)
--- NOTE | 2016-08-30 06:19 | Diag Imaging Result Document ---
PROCEDURE NAME: CHEST-PORTABLE - 08/30/2016 PORTABLE CHEST: COMPARISON: 08/29/2016. FINDINGS: The lungs are well expanded. The heart is enlarged. Decreased basilar atelectasis. No consolidation. No pleural effusions identified. IMPRESSION: Mild interval improvement compared to the prior study.
[2016-08-30 06:21] LABS: BANDS 2 % (0-1)
[2016-08-30 06:22] LABS: HYPOCHROM 1+
[2016-08-30] MEDS: PROTONIX IV SCH (06:48)
[2016-08-30] MEDS: HUMULIN R SUBQ SCH ×3 (06:48→18:49)
[2016-08-30] MEDS: SYNTHROID IV SCH (06:49)
[2016-08-30] MEDS ORDERED: INSULIN PEN NEEDLES ONE (08:41)
[2016-08-30] MEDS: LEVEMIR SUBQ SCH ×2 (08:54→21:18)
[2016-08-30] MEDS: LEVAQUIN PO SCH (08:54)
[2016-08-30] MEDS ORDERED: LASIX IV ONE (08:58)
--- NOTE | 2016-08-30 12:10 | PROGRESS NOTE ---
DATE: 08/30/2016 SUBJECTIVE: The patient is sitting up in bed. She states that she did not sleep well last night. She states that she is still having a dull ache in her left knee. OBJECTIVE: Vital Signs: Temperature 98.3 degrees, blood pressure 122/67, heart rate 80, respirations 12, O2 saturations 95% on 5 L nasal cannula. General: This is a morbidly obese female, lying in bed, in no acute distress. Head: Normocephalic, atraumatic. Heart: S1, S2. Normal. Regular rate and rhythm. Lungs: Clear to auscultation bilaterally. No wheezes, no rales. No rhonchi. Abdomen: Positive bowel sounds. Soft, nontender, nondistended. Extremities: There is a dressing applied to the left knee with an immobilizer present. Neurologic: The patient is alert oriented x3. LABS: White blood cell count 21 hemoglobin 9.4, hematocrit 29, platelets 466,000. Sodium 136, potassium 4.9, chloride 97, CO2 24, BUN 14, creatinine 0.9, glucose 223. ASSESSMENT AND PLAN: 1. Metabolic encephalopathy. Resolved. 2. Status post removal of a left total knee arthroplasty with debridement and irrigation. Continue on IV antibiotic therapy as directed by Dr. Jaffe. Further management as per the orthopedic surgeon. 3. Urinary tract infection secondary to Escherichia coli. Continue on antibiotic therapy. 4. Morbid obesity. Aware. 5. Obstructive sleep apnea. Aware. 6. Uncontrolled diabetes mellitus type 2. We will increase the patient's Levemir to 30 units subcutaneous twice a day. 7. Deep vein thrombosis prophylaxis. The patient is on Xarelto. 8. The patient is stable for transfer to the surgical floor. cc: Rose Mary Skinner MD
[2016-08-30] MEDS ORDERED: VANCOMYCIN IV PER PHARMACY MISC SCH (12:30)
--- NOTE | 2016-08-30 12:53 | PROGRESS NOTE ---
DATE: 08/30/2016 HISTORY: The patient initially became somewhat septic from an Escherichia coli urinary tract infection. After that resolved, the patient had her left knee removed and had a spacer placed because it was felt that she has septic arthritis involving that knee. MEDICATIONS: The patient is on Levaquin and I have just ordered that vancomycin should be started. PHYSICAL EXAMINATION: Vital Signs: Temperature is 98.3 degrees, pulse 80, respirations 12, blood pressure 122/67. General: This is an obese, middle-aged female. She is in no acute distress at this time. Lungs: Clear to auscultation. Cardiovascular: Regular heart rate. Abdomen: Soft and nontender. Extremities: The patient's left knee has a large dressing on it. The dressing is intact. The knee appears to me to be less swollen than it was prior to surgery. LABORATORY AND X-RAY: The patient's CBC today shows white count of 21,100. Hemoglobin 9.4, platelet count 466,000. Creatinine 0.9. GFR is greater than 60. Thus far, all the cultures taken at surgery from the patient's left knee are negative. ASSESSMENT AND PLAN: My plan is to continue the patient on Levaquin which she is already receiving and I have written for her to start vancomycin. I have put in a consult for [facility] to supply the patient's home IV vancomycin. I have printed up from the computer a prescription for Levaquin to take at home namely 500 mg daily. I will be treating the patient with vancomycin and Levaquin for a total of 6 weeks. I have requested that the patient see me in the office in 3 weeks and then again I will see her at 6 weeks, which then we will stop the antibiotics and remove the patient's PICC. COMORBIDITIES: Systemic lupus, diabetes and obesity. cc: MD Rose Mary Ramachandran MD
[2016-08-30 14:23] LABS: INR 1.24; PROTIME 13.2 Seconds (9.2-11.7)
[2016-08-30] MEDS ORDERED: NS 250 ML ONE (14:40)
--- NOTE | 2016-08-30 15:09 | Diag Imaging Result Document ---
PROCEDURE NAME: CHEST-PORTABLE - 08/30/2016 SINGLE FRONTAL RADIOGRAPH OF THE CHEST: COMPARISON: 08/30/2016. FINDINGS: There is a recently placed right PICC line. The tip projects over the lower SVC just superior to the atriocaval junction in the expected position. The chest is stable, otherwise. IMPRESSION: Interval placement of PICC line in the expected position as described.
[2016-08-30] MEDS: LR 1,000 ML IV SCH (15:59)
[2016-08-30] MEDS: VANCOMYCIN 2,500 MG in NS 500 ML IV SCH (18:49)
[2016-08-30] MEDS: PERICOLACE PO SCH (21:18)
[2016-08-31] MEDS: DUONEB (A & A) INH SCH ×6 (03:14→23:17)
[2016-08-31] MEDS: HUMULIN R SUBQ SCH ×5 (04:01→22:07)
[2016-08-31 05:48] LABS: MANUAL DIFF NEEDED? NO
[2016-08-31 05:50] LABS: BASO% 0.3 % (0.0-0.8); EOS# 0.08 X1000 (0.0-0.7); EOS% 0.6 % (0.0-10.0); HEMATOCRIT 29.1 % (37.0-47.0); HEMOGLOBIN 9.3 g/dL (12.0-16.0); IMM GRAN% 1.5 % (0.0-0.5); LYMPH# 1.36 X1000 (1.2-3.4); MCH 27.8 PG (27-31); MCV 87.1 FL (81-99); MONO# 1.06 X1000 (0.11-0.59); MONO% 7.8 % (1.7-9.3); MPV 8.9 FL (7.4-10.4); NEUT% 79.8 % (42.2-75.2); PLT 492 X1000 (130-400); RBC 3.34 XMIL (4.2-5.4)
[2016-08-31 06:14] LABS: AGAP 14; BUN 17 mg/dL (8-22); CALCIUM 9.4 mg/dL (8.8-10.2); CHLORIDE 99 mmol/L (98-107); COSMO 286; POTASSIUM 3.8 mmol/L (3.5-5.1); SODIUM 141 mmol/L (136-145); TCO2 28 mmol/L (25-35)
[2016-08-31] MEDS: NS 1,000 ML IV SCH (06:41)
[2016-08-31] MEDS: XARELTO PO SCH (06:41)
[2016-08-31] MEDS: PROTONIX IV SCH (06:59)
[2016-08-31] MEDS: SYNTHROID PO SCH (06:59)
[2016-08-31] MEDS: LEVAQUIN PO SCH (09:42)
[2016-08-31] MEDS: LEVEMIR SUBQ SCH ×3 (09:45→22:07)
[2016-08-31] MEDS ORDERED: LACTULOSE PO ONE (10:03)
--- NOTE | 2016-08-31 11:10 | PROGRESS NOTE ---
DATE: 08/31/2016 SUBJECTIVE: Ms. Ruby is seen for follow up status post removal of infected total knee. Currently her hematocrit is 29. OBJECTIVE: General: She is alert and oriented. Vital signs: Stable. Skin: The incision looks clean and dry. ASSESSMENT AND PLAN: She has mobilizing slowly with therapy. Will continue with current treatment. Will probably plan on rehab in the near future. cc: MD Rose Mary Watkins MD
[2016-08-31] MEDS: MIRALAX PO SCH ×2 (11:43→21:59)
--- NOTE | 2016-08-31 13:22 | PROGRESS NOTE ---
DATE: 08/31/2016 SUBJECTIVE: The patient states that she did not sleep well last night. She states there were too many interruptions. She does complain of constipation. OBJECTIVE: Vital Signs: Temperature 98 degrees, blood pressure 151/85, heart rate 94, respirations 18, O2 saturation 96% on 1L nasal cannula. General: This is a morbidly obese female, lying in bed in no acute distress. Head: Normocephalic, atraumatic. Heart: S1 and S2 normal. Regular rate and rhythm. Lungs: Clear to auscultation bilaterally. Abdomen: Positive bowel sounds. Soft, obese, nontender, nondistended. Extremities: Edema 1+. No cyanosis. No calf tenderness. Neurologic: The patient is alert and oriented x3. LABORATORIES: The white blood cell count is 13, hemoglobin 9.3, hematocrit 29, platelets 492,000. Sodium 141, potassium 3.8, chloride 99, CO2 of 28, BUN 17, creatinine 0.9, glucose 150, calcium 9.4. ASSESSMENT AND PLAN: 1. Methicillin-resistant Staphylococcus aureus knee infection status post removal of a left total knee arthroplasty with debridement and irrigation. Continue on IV vancomycin. The patient will need 6 weeks of antibiotic therapy, as per Dr. Jaffe. 2. Urinary tract infection secondary to Escherichia coli. Continue on the current antibiotic therapy. 3. Metabolic encephalopathy. Resolved. 4. Diabetes mellitus, type 2. Continue on Levemir 30 units twice a day. 5. Obstructive sleep apnea. Aware. 6. Deep vein thrombosis prophylaxis. Continue on Xarelto. Continue with physical therapy. 7. Disposition: The patient states that she would like to go to [facility] rehabilitation upon discharge. Will consult [facility] to arrange for this. cc: Rose Mary Skinner MD
[2016-08-31] MEDS: VANCOMYCIN 2,500 MG in NS 500 ML IV SCH (17:50)
[2016-08-31] MEDS: LR 1,000 ML IV SCH ×2 (17:56→18:12)
[2016-08-31] MEDS: PERICOLACE PO SCH (22:00)
[2016-09-01] MEDS: DUONEB (A & A) INH SCH ×5 (03:35→19:38)
[2016-09-01 06:00] LABS: MANUAL DIFF NEEDED? NO
[2016-09-01 06:03] LABS: BASO% 0.5 % (0.0-0.8); EOS# 0.22 X1000 (0.0-0.7); EOS% 2.2 % (0.0-10.0); HEMATOCRIT 30.4 % (37.0-47.0); HEMOGLOBIN 9.7 g/dL (12.0-16.0); IMM GRAN# 0.13 X1000 (0.0-0.04); IMM GRAN% 1.3 % (0.0-0.5); LYMPH% 12.8 % (20.5-51.1); MCHC 31.9 g/dL (33-37); MCV 87.6 FL (81-99); MONO# 0.94 X1000 (0.11-0.59); MONO% 9.2 % (1.7-9.3); PLT 515 X1000 (130-400); RBC 3.47 XMIL (4.2-5.4)
[2016-09-01] MEDS: SYNTHROID PO SCH (06:19)
[2016-09-01] MEDS: PROTONIX IV SCH (06:19)
[2016-09-01] MEDS: SODIUM CHLORIDE 0.9% INJ SCH (06:19)
[2016-09-01] MEDS: XARELTO PO SCH (06:19)
[2016-09-01] MEDS: HUMULIN R SUBQ SCH ×4 (06:21→20:50)
[2016-09-01 06:28] LABS: AGAP 15; BUN 14 mg/dL (8-22); CHLORIDE 102 mmol/L (98-107); COSMO 289; POTASSIUM 3.8 mmol/L (3.5-5.1); SODIUM 144 mmol/L (136-145); TCO2 27 mmol/L (25-35)
[2016-09-01] MEDS: LEVAQUIN PO SCH (08:30)
[2016-09-01] MEDS: LEVEMIR SUBQ SCH ×2 (08:30→21:50)
[2016-09-01] MEDS ORDERED: INSULIN PEN NEEDLES ONE (08:34)
[2016-09-01] MEDS: MIRALAX PO SCH ×2 (08:36→21:51)
[2016-09-01] MEDS ORDERED: XANAX PO PRN (09:31)
--- NOTE | 2016-09-01 10:11 | PROGRESS NOTE ---
DATE: 09/01/2016 Ms. Ruby is seen for followup of her infected total knee. Currently, she is afebrile with stable vital signs. The incision is clean and dry. Her cultures did grow MRSA. She is on appropriate antibiotics for this by the infectious disease doctor. She has had a PICC line placed. We will plan transfer to a rehab center tomorrow. She can continue to mobilize in the interim. cc: MD Rose Mary Watkins MD
--- NOTE | 2016-09-01 15:10 | PROGRESS NOTE ---
DATE: 09/01/2016 SUBJECTIVE: The patient is resting comfortably in bed. She states that she did not sleep well last night. She states that she might take a sleeping pill tonight to help her rest. OBJECTIVE: Vital Signs: Temperature 98.1 degrees, blood pressure 189/90, heart rate 94, respirations 18, O2 saturation is 98% on 2 L nasal cannula. General: This is a morbidly obese female, lying in bed, in no acute distress. Head: Normocephalic, atraumatic. Heart: S1, S2. Normal. Regular rate and rhythm. Lungs: Clear to auscultation bilaterally. No wheezes. No rales. No rhonchi. Abdomen: Positive bowel sounds. Soft, nontender, nondistended. Extremities: The left knee is wrapped in a dressing. There is +1 edema. Neurologic: The patient is alert and oriented x3. LABS: White blood cell count 10, hemoglobin 9.7, hematocrit 30, platelets 515, 000. Sodium 144, potassium 3.8, chloride 102, CO2 27, BUN 14, creatinine 0.9, glucose 123. ASSESSMENT AND PLAN: 1. Methicillin-resistant Staphylococcus aureus of a left total knee arthroplasty with debridement and irrigation. Continue on vancomycin. Further management as per the orthopedic surgeon and Dr. Jaffe. 2. Urinary tract infection secondary to Escherichia coli. Continue on the antibiotic regimen as directed by Dr. Jaffe. 3. Hypertension. We will start the patient on Coreg. 4. Metabolic encephalopathy, resolved. 5. Diabetes mellitus type 2. Continue on Levemir 30 units subcutaneous twice a day. 6. Obstructive sleep apnea. Aware. 7. Deep vein thrombosis prophylaxis. Continue on Xarelto. 8. Disposition. The patient will be discharged to rehab when a bed is available. cc: Rose Mary Skinner MD [facility]
[2016-09-01] MEDS: VANCOMYCIN 2,500 MG in NS 500 ML IV SCH (18:44)
[2016-09-01] MEDS: LR 1,000 ML IV SCH (18:46)
[2016-09-01] MEDS: NORVASC PO SCH (21:50)
[2016-09-01] MEDS: COREG PO SCH (21:50)
[2016-09-01] MEDS: PERICOLACE PO SCH (21:50)
[2016-09-02] MEDS: DUONEB (A & A) INH SCH ×5 (03:43→19:23)
[2016-09-02] MEDS: HUMULIN R SUBQ SCH ×4 (06:18→22:14)
[2016-09-02] MEDS: SYNTHROID PO SCH (06:35)
[2016-09-02] MEDS: PROTONIX IV SCH (06:35)
[2016-09-02] MEDS: XARELTO PO SCH (06:35)
[2016-09-02] MEDS: SODIUM CHLORIDE 0.9% INJ SCH (06:36)
[2016-09-02 06:45] LABS: CALCIUM 10.3 mg/dL (8.8-10.2); POTASSIUM 3.6 mmol/L (3.5-5.1)
--- NOTE | 2016-09-02 08:24 | PROGRESS NOTE ---
DATE: 09/02/2016 SUBJECTIVE: The patient has a methicillin-resistant Staph aureus and diphtheroids septic knee arthritis with infection of the total knee arthroplasty. The patient also has an E-coli urinary tract infection. MEDICATIONS: The patient is on p.o. Levaquin and IV vancomycin. PHYSICAL EXAMINATION: Vital Signs: Temperature is 98.1, pulse 87, respirations 14, blood pressure 152/77. General: This is an obese, middle-aged female. She is in no acute distress. Lungs: Clear to auscultation. Cardiovascular: Regular heart rate. Abdomen: And flanks soft and nontender. Extremities: The patient's left knee has a large dressing on it. She also has a PICC in place. LAB AND X-RAY: Patient's CBC shows a white count of 10,190 hemoglobin 9.7, and platelet count 515,000, creatinine is 1.0. GFR is 57. The patient's knee culture grew methicillin-resistant Staph aureus and diphtheroids. ASSESSMENT AND PLAN: I am going to continue Levaquin for the patient's urinary tract infection, and I am going to continue vancomycin for a total of 8 weeks because of the finding of MRSA in the knee. The patient will be going to the outpatient clinic when she is done going to rehabilitation. I have requested that she see me in my office in approximately 3-1/2 weeks after discharge. I have also electronically written a prescription for the patient's Levaquin. COMORBIDITIES: Include systemic lupus, diabetes mellitus, obesity and the fact that the patient had knee surgery. cc: MD Bobby Ramachandran MD
--- NOTE | 2016-09-02 08:36 | Extremity Venous Study ---
PROCEDURE NAME: Venous U/S Bilateral Legs - 08/28/2016 REFERRING PHYSICIAN: Dr. Beckett. READING PHYSICIAN: Sudeep Longo MD. PRODUCTION CONTROL EXPEDITER: Chintan. INDICATION: Syncope and possible PE. FINDINGS: The deep and superficial veins of both lower extremities were imaged throughout their course. All are compressible with forward flow. No thrombus is appreciated. INTERPRETATION: No evidence of deep or superficial venous thrombosis in either lower extremity. cc: MD Devon Kothari MD Alexis R. Penot, MD
[2016-09-02] MEDS: LEVEMIR SUBQ SCH ×2 (09:35→22:26)
[2016-09-02] MEDS: NORVASC PO SCH ×2 (09:36→22:27)
[2016-09-02] MEDS: COREG PO SCH ×2 (09:36→22:27)
[2016-09-02] MEDS: MIRALAX PO SCH ×2 (09:36→22:26)
--- NOTE | 2016-09-02 10:47 | DISCHARGE SUMMARY ---
ADMISSION DATE: 08/27/2016 DISCHARGE DATE: 09/02/2016 ADMITTING DIAGNOSIS: Infection of the left total knee. ADDITIONAL DIAGNOSES: 1. Lupus. 2. Thyroid disorder. 3. Diabetes mellitus. DISCHARGE DIAGNOSES: 1. 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 2. Lupus. 3. Thyroid disorder. 4. Diabetes mellitus. ADMITTING HISTORY AND HOSPITAL COURSE: Ms. Ruby is a 61-year-old, white female with a history of having a left total knee arthroplasty performed in June of 2015. Originally, she did well but she began having some pain and swelling recently. Tried to treat it conservatively and failed. She was found to have infection in her left total knee. She was brought to the operating room on August 27, 2016 for a removal of the total knee and placement of the spacer. On arrival to the emergency department, there was a decreased level of consciousness. The surgery was canceled. The patient was placed in the ICU. Her condition improved. We went ahead and performed surgery on her last . We removed the components and placed temporary components with a spacer and antibiotic beads. The patient did fine after the surgery. Vital signs remained stable. She is afebrile. Gram stain grew methicillin-resistant Staphylococcus aureus and some diphtheroids. She is currently on contact isolation on the floor. Therapy has been working with her. There are no signs or symptoms of DVT. We plan to discharge her to rehab today. Her incision looks good. Her dressing is dry and clean. DISCHARGE MEDICATIONS: Include Caltrate 600 plus D3 plus min chew tablet 1 p.o. daily, Requip 2 mg p.o. at bedtime, Lasix 20 mg p.o. daily, Synthroid 175 mcg p.o. daily, BuSpar 15 mg p.o. b.i.d., Xanax 1 mg p.o. t.i.d., Plaquenil 200 mg p.o. b.i.d., Senokot 1 p.o. daily, Flonase 2 sprays intranasally b.i.d., Neurontin 100 mg p.o. t.i.d., probiotic 1 p.o. daily , Levaquin 500 mg p.o. daily #40, Xarelto 10 mg p.o. daily for 14 days, [place] 10 one to two p.o. q.4-6 hours p.r.n. for pain. DISCHARGE INSTRUCTIONS: Ms. Ruby is to discharge today to the rehab facility of her choice. We have discussed with her that she is going to continue her home medicines as well as [place] for pain and Xarelto for an anticoagulant, DVT prophylaxis. Instructed her if she has any worsening signs or symptoms, or questions at all, do not hesitate to call the office. She will need to follow up with Dr. Wheeler either when she is discharged from the facility to have her carlin removed or in 10 days, the facility will remove her carlin from her incision. I also told her that if she had any questions or concerns, she should call the office. Dictated by MATT Tellez for Nitin Wheeler MD cc: MATT Tellez MD Alexis R. Penot, MD MTDD
[2016-09-02] MEDS: NORCO-10 PO PRN (13:15)
[2016-09-02] MEDS ORDERED: TORADOL IV ONE (14:41)
--- NOTE | 2016-09-02 16:21 | PROGRESS NOTE ---
DATE: 09/02/2016 SUBJECTIVE: Patient has got significant complaints after PT. OBJECTIVE: Vital Signs: Blood pressure 178/85, heart rate 84, respiratory 18, temperature 98.4 degrees. Cardiovascular: Regular rate and rhythm. Pulmonary: Bilateral breath sounds. Clear to auscultation. GI: Soft, nontender, nondistended. Bowel sounds are positive. LABORATORY DATA: CMP looked okay. Creatinine of 1, calcium 10.3. CBC showed normal white count 10, hemoglobin and hematocrit 9 and 30, platelets 215,000. PROBLEM LIST: Methicillin-resistant Staphylococcus aureus infection left knee. We will continue antibiotics, she is currently on Levaquin. She is going to be taking that for a month but she clinically appears to be stable. Anemia appears to be stable, lupus appears to be controlled. DISPOSITION: Plan for rehab, I think at this point it is going to be tomorrow based on current data. cc: Bobby Dougherty MD
[2016-09-02] MEDS: VANCOMYCIN 2,500 MG in NS 500 ML IV SCH (17:27)
[2016-09-02] MEDS ORDERED: LEVAQUIN PO SCH (20:00)
[2016-09-02] MEDS: PERICOLACE PO SCH (22:27)
[2016-09-03] MEDS: NORCO-10 PO PRN ×2 (02:50→08:39)
[2016-09-03 05:53] LABS: CALCIUM 9.6 mg/dL (8.8-10.2); POTASSIUM 3.7 mmol/L (3.5-5.1)
[2016-09-03] MEDS: HUMULIN R SUBQ SCH ×2 (06:42→11:34)
[2016-09-03] MEDS: XARELTO PO SCH (06:43)
[2016-09-03] MEDS: SYNTHROID PO SCH (06:43)
[2016-09-03] MEDS: SODIUM CHLORIDE 0.9% INJ SCH (06:43)
[2016-09-03] MEDS: PROTONIX IV SCH (06:43)
[2016-09-03] MEDS ORDERED: INSULIN PEN NEEDLES ONE (06:53)
[2016-09-03] MEDS: MIRALAX PO SCH (08:39)
[2016-09-03] MEDS: COREG PO SCH (08:39)
[2016-09-03] MEDS: NORVASC PO SCH (08:39)
[2016-09-03] MEDS: LEVEMIR SUBQ SCH (08:40)
--- NOTE | 2016-09-03 10:40 | PROGRESS NOTE ---
DATE: 09/03/2016 PRESENT ILLNESS: The patient is status post removal of a prosthesis from a methicillin-resistant Staph aureus and diphtheroids septic left knee and infection of the total knee arthroplasty. The patient also has an Escherichia coli urinary tract infection. MEDICATIONS: The patient is on IV vancomycin and p.o. Levaquin. She is going to require 8 weeks of therapy with the vancomycin and 2 weeks of treatment with the Levaquin. PHYSICAL EXAMINATION: Vital Signs: Temperature is 98.4 degrees, pulse 79, respirations 18, blood pressure 150/64. General: This is an obese, middle-aged female. She is having some pain in her left knee. She said she felt it pop. Lungs: Clear to auscultation. Cardiovascular: Regular heart rate. Abdomen and flanks: Soft and nontender. Extremities: The patient's left knee has a dressing on it. The incision is intact. I moved the left knee passively and it did not cause the patient any more pain than she has usually had and there was no clicking sound, so I do not think that the joint is dislocated. Patient has a PICC in her arm and that site is not erythematous or swollen. LAB AND X-RAY: The patient's creatinine is 1.1. The GFR is 51. There is no further lab and there is no radiographic study for today. 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 When the patient leaves the rehab hospital she will continue her therapy for vancomycin at the outpatient clinic at [place]. I do not think she will require anymore Levaquin because she will have completed our a 2 week treatment course. The patient's comorbidities include systemic lupus, diabetes mellitus, obesity, and the fact the patient has had prior knee surgery. cc: MD Bobby Ramachandran MD
[2016-09-03 11:17] VITALS: BP 154/61
[2016-09-03] MEDS ORDERED: XANAX PO SCH (13:00)
[2016-09-03] MEDS ORDERED: NEURONTIN PO SCH (13:00)
[2016-09-04] MEDS ORDERED: CULTURELLE PO SCH (09:00)
== END 2016-09-03 13:28 ==
LOC: SURHOLD 02:19 → ICU 15:28 → 4N 08-30 12:48
PROVIDERS: ADMIT Internal Medicine; ATTEND Orthopaedic Surgery Adult Reconstructive Orthopaedic Surgery
PROC: MS.CXOR (2016-08-27 14:20)

== ENCOUNTER 2016-11-26 02:26 | Inpatient (IN) ==
[2016-11-21 10:32] LABS: MANUAL DIFF NEEDED? NO; URINE MICRO REVIEW NEEDED? NO; URINE SOURCE CLEAN CATCH
[2016-11-21 10:36] LABS: BASO% 1.6 % (0.0-0.8); EOS% 2.2 % (0.0-10.0); HEMATOCRIT 38.9 % (37.0-47.0); HEMOGLOBIN 12.8 g/dL (12.0-16.0); IMM GRAN# 0.02 X1000 (0.0-0.04); IMM GRAN% 0.2 % (0.0-0.5); LYMPH# 1.84 X1000 (1.2-3.4); MCH 28.6 PG (27-31); MCHC 32.9 g/dL (33-37); MCV 86.8 FL (81-99); MONO# 0.69 X1000 (0.11-0.59); MONO% 7.5 % (1.7-9.3); MPV 10.1 FL (7.4-10.4); NEUT% 68.5 % (42.2-75.2); PLT 294 X1000 (130-400); RBC 4.48 XMIL (4.2-5.4)
[2016-11-21 10:37] LABS: BILIRUBIN URINE NEGATIVE (NEGATIVE); BLOOD URINE NEGATIVE (NEGATIVE); COLOR YELLOW; GLUCOSE URINE NEGATIVE (NEGATIVE); LEUKOCYTES URINE LARGE (NEGATIVE); NITRITE URINE NEGATIVE (NEGATIVE); PH URINE 5.5; PROTEIN URINE NEGATIVE (NEGATIVE); SP GRAVITY URINE 1.009; TURBIDITY URINE HAZY (CLEAR); UR EPITHELIAL CELLS <10 /HPF (<10); URINE BACTERIA 4+ /HPF; URINE WBC TNTC /HPF (<10); UROBILINOGEN URINE NORMAL (NORMAL)
[2016-11-21 10:54] LABS: CALCIUM 10.2 mg/dL (8.8-10.2); POTASSIUM 4.6 mmol/L (3.5-5.1)
[2016-11-21 10:57] LABS: INR 0.99; PROTIME 10.4 Seconds (9.2-11.7); PTT 26.7 Seconds (22.0-36.0)
[2016-11-26] MEDS ORDERED: MORPHINE IV PRN (08:54)
[2016-11-26] MEDS ORDERED: [UNRECOGNIZED DRUG - REMARK] NS SCH (09:00)
[2016-11-26] MEDS ORDERED: [UNRECOGNIZED DRUG - OTHER] PO SCH (09:00)
[2016-11-26] MEDS ORDERED: REGLAN ONE (11:17)
[2016-11-26] MEDS ORDERED: LYRICA ONE (11:17)
[2016-11-26] MEDS ORDERED: CELEBREX ONE (11:17)
[2016-11-26] MEDS ORDERED: LR 1,000 ML ONE (11:17)
[2016-11-26] MEDS ORDERED: PEPCID ONE (11:17)
[2016-11-26] MEDS ORDERED: COLACE ONE (11:17)
[2016-11-26] MEDS ORDERED: TORADOL ONE (12:47)
[2016-11-26] MEDS ORDERED: MARCAINE 0.25% PF/EPI 1:200,000 ONE (12:47)
[2016-11-26] MEDS ORDERED: VANCOMYCIN ONE ×2 (12:47→13:13)
[2016-11-26] MEDS ORDERED: DURAMORPH ONE (12:47)
[2016-11-26] MEDS ORDERED: NEOSPORIN G.U. IRRIGANT ONE (12:48)
[2016-11-26] MEDS ORDERED: CYKLOKAPRON 1,000 MG/NS 1,000 MG/100 ML IVPB ONE ×2 (12:48)
[2016-11-26] MEDS ORDERED: EXPAREL 1.3% ONE (12:48)
[2016-11-26] MEDS ORDERED: SODIUM CHLORIDE 0.9% ONE (12:48)
[2016-11-26] MEDS ORDERED: DIPRIVAN 1% ONE (13:12)
[2016-11-26] MEDS ORDERED: TOBRAMYCIN ONE (13:13)
[2016-11-26] MEDS ORDERED: VERSED ONE (13:13)
[2016-11-26] MEDS ORDERED: QUELICIN (DOSE) ONE (13:17)
[2016-11-26] MEDS ORDERED: XYLOCAINE-MPF 2% ONE (13:17)
[2016-11-26] MEDS ORDERED: ROBINUL ONE (13:17)
[2016-11-26] MEDS ORDERED: VANCOMYCIN 1 GM/NS 1 GM/250 ML IVPB ONE (13:42)
[2016-11-26] MEDS ORDERED: ZOFRAN ONE (13:54)
[2016-11-26] MEDS ORDERED: DECADRON ONE (13:54)
[2016-11-26] MEDS ORDERED: OFIRMEV 1000 MG/ISOTONIC SOLN 1,000 MG/100 ML BOTTLE ONE (13:55)
[2016-11-26] MEDS ORDERED: FENTANYL ONE (13:55)
[2016-11-26 14:12] LABS: URINE MICRO REVIEW NEEDED? NO; URINE SOURCE CATH
[2016-11-26 14:30] LABS: BILIRUBIN URINE NEGATIVE (NEGATIVE); BLOOD URINE NEGATIVE (NEGATIVE); COLOR YELLOW; GLUCOSE URINE NEGATIVE (NEGATIVE); LEUKOCYTES URINE NEGATIVE (NEGATIVE); NITRITE URINE NEGATIVE (NEGATIVE); PH URINE 5.5; PROTEIN URINE TRACE mg/dL (NEGATIVE); SP GRAVITY URINE 1.017; TURBIDITY URINE CLEAR (CLEAR); UROBILINOGEN URINE NORMAL (NORMAL)
[2016-11-26 14:31] LABS: UR EPITHELIAL CELLS <10 /HPF (<10); URINE BACTERIA NEGATIVE /HPF; URINE RBC <10 /HPF (<10); URINE WBC <10 /HPF (<10)
--- NOTE | 2016-11-26 15:54 | OPERATIVE NOTE ---
PROCEDURE DATE: 11/26/2016 PREOPERATIVE DIAGNOSIS: Status post infected left total knee arthroplasty with degenerative joint disease of the knee. POSTOPERATIVE DIAGNOSIS: Status post infected left total knee arthroplasty with degenerative joint disease of the knee. OPERATION: Revision stage II implantation of the left total knee. SURGEON: Marlene Wheeler MD. ASSISTANTS: 1. AQUILES Crawford. 2. Terry Juarez RN. ANESTHESIA: General. COMPLICATION: None. PROCEDURE IN DETAIL: This 61-year-old female status post removal of an infected total knee presents for surgical revision and reimplantation. Risks, benefits, and no guarantees regarding outcome or recurrent infection was discussed, and she is willing to proceed. She was taken into the operating room and satisfactory anesthesia obtained. The left leg was prepped and draped in the usual sterile fashion. A time-out was taken to confirm operative site, procedure, and patient. The leg was wrapped with an Esmarch and tourniquet inflated to 350 mmHg. The previous midline incision over the front of the knee was utilized and a quad tendon sparing arthrotomy made. The previous temporary spacer was removed with both the poly and the femoral component and any remaining cement debrided from the tibial plateau and femur. Intramedullary reaming of the tibia was undertaken up to a size 16 reamer. Using a Shizzlr revision Sigma system, the tibia was broached proximally to accommodate a metaphysis sleeve which was 37 mm wide. A size 4 tibia was connected to this for the tibial trial. After preparation of the tibia, the femoral canal was reamed up to a 16. Femoral metaphyseal broach was utilized to fill the distal femur with a 40 mm femoral sleeve. A size 4 T C3 Sigma femoral component, posterior stabilized, assembled onto this and any finishing cuts about the chamfers or distal femur was undertaken. It was utilized with 4 mm augments on both sides of the distal femur and posterior condyles to accommodate for bone loss. Trial reduction was performed with good range of motion and stability with a 20 mm thick posterior stabilized poly. The trial implants removed and the bony surfaces thoroughly irrigated with pulsatile lavage. Absorbable antibiotic impregnated beads were placed in the joint capsule as well as down the intramedullary shaft of the tibia and femur. Using antibiotic impregnated cement, a size 4 tibial implant with the sleeve and femoral stem was impacted and excess cement removed. Similar technique was utilized to place the femoral component. The patella was noted to be significantly thin and not suitable for a prosthesis. This was is gently debrided to allow tracking. Afterwards and while the cement cured, the cement was removed with a Helix elevator. The joint capsule was injected with Exparel for pain management. A Hemovac drain was placed. The arthrotomy was then closed with #1 Vicryl, the subcutaneous with 2-0 Vicryl, and the skin with skin carlin. After reimplantation, range of motion was roughly 0-100 degrees with midline patellar tracking and excellent soft tissue balance. The tourniquet was released with good return of capillary blood flow, and she has recovered from anesthesia and transferred to the recovery room in stable condition. No intraoperative complications were noted. Instrument count and sponge count were correct at the time of closure. cc: Nitin Wheeler MD
[2016-11-26] MEDS ORDERED: MORPHINE ONE (16:00)
[2016-11-26] MEDS ORDERED: NS 1,000 ML ONE (16:00)
[2016-11-26] MEDS: DILAUDID ONE ×6 (16:06→20:19)
[2016-11-26] MEDS: PHENERGAN ONE ×2 (16:20→20:18)
[2016-11-26] MEDS: LABETALOL ONE ×2 (16:43→20:18)
--- NOTE | 2016-11-26 17:47 | PROGRESS NOTE ---
DATE: 11/26/2016 POSTOP NOTE: Ms. Ruby is seen for postop status post a revision total knee. Presently she is comfortable. Her bandage is clean and dry. Vital signs are all stable and she is afebrile. There is good range of motion of the toes and ankles with good capillary refill. She is medically stable at the present time. cc: Nitin Wheeler MD
--- NOTE | 2016-11-26 18:18 | Diag Imaging Result Doc PS360 ---
EXAM: KNEE 1-2 VIEWS-LEFT HISTORY: tka TECHNIQUE: Three views COMPARISON: 05/20/2016 FINDINGS: There has been recent surgery to the knee. There are multiple anterior skin carlin. Interval replacement of the prior orthopedic prosthesis. IMPRESSION: Good alignment to the femoral and tibial components of the recently replaced knee prosthesis. Electronically signed by Drake Anthony 11/26/2016 6:16 PM
[2016-11-26] MEDS: BUSPAR PO SCH ×2 (18:25→23:08)
[2016-11-26] MEDS: NEURONTIN PO SCH ×3 (18:26→23:07)
[2016-11-26] MEDS: COLACE PO SCH ×2 (18:26→23:09)
[2016-11-26] MEDS: XANAX PO SCH ×3 (18:27→23:07)
[2016-11-26] MEDS: PERICOLACE PO SCH (18:27)
[2016-11-26] MEDS: PLAQUENIL PO SCH ×2 (18:27→23:07)
[2016-11-26] MEDS ORDERED: LABETALOL (DOSE) IV ONE ×2 (20:00)
[2016-11-26] MEDS: NS 1,000 ML IV SCH (23:06)
[2016-11-26] MEDS: FLONASE NAS SCH (23:06)
[2016-11-26] MEDS: NORCO-10 PO PRN (23:07)
[2016-11-26] MEDS: REQUIP PO SCH (23:07)
[2016-11-27] MEDS ORDERED: VANCOMYCIN 1 GM/NS 1 GM/250 ML IVPB IV ONE (02:00)
[2016-11-27] MEDS: PERIDEX MT SCH ×3 (02:03→23:38)
[2016-11-27] MEDS: NORCO-10 PO PRN ×5 (02:11→23:41)
[2016-11-27 05:58] LABS: HEMATOCRIT 33.5 % (37.0-47.0); HEMOGLOBIN 11.1 g/dL (12.0-16.0)
[2016-11-27 06:52] LABS: CALCIUM 9.3 mg/dL (8.8-10.2); POTASSIUM 5.2 mmol/L (3.5-5.1)
[2016-11-27] MEDS: SYNTHROID PO SCH (07:05)
[2016-11-27] MEDS: XARELTO PO SCH (07:06)
[2016-11-27] MEDS: FLONASE NAS SCH ×2 (08:03→23:36)
[2016-11-27] MEDS: COLACE PO SCH ×2 (08:03→23:37)
[2016-11-27] MEDS: CALTRATE 600 + D PO SCH (08:04)
[2016-11-27] MEDS: XANAX PO SCH ×3 (08:04→16:23)
[2016-11-27] MEDS: BUSPAR PO SCH ×2 (08:04→23:37)
[2016-11-27] MEDS: PLAQUENIL PO SCH ×2 (08:04→23:37)
[2016-11-27] MEDS: NEURONTIN PO SCH ×3 (08:04→16:23)
[2016-11-27] MEDS: PERICOLACE PO SCH (08:07)
--- NOTE | 2016-11-27 08:07 | PROGRESS NOTE ---
DATE: 11/27/2016 Ms. Ruby was seen for a revision total knee replacement. At the present time, she is afebrile with stable vital signs. The incision is clean and dry. We plan to remove her tubes and drains today, and change her bandage. We will plan on [facility] placement once she is approved for that. She can be mobilized as tolerated today. We will transfer her to [facility] when a bed is available. cc: Nitin Wheeler MD
[2016-11-27] MEDS: NS 1,000 ML IV SCH ×2 (08:12→23:38)
[2016-11-27] MEDS: REQUIP PO SCH (23:37)
[2016-11-28] MEDS: NORCO-10 PO PRN ×4 (04:54→15:16)
[2016-11-28] MEDS: XARELTO PO SCH (05:28)
[2016-11-28] MEDS: SYNTHROID PO SCH ×2 (05:28→08:25)
[2016-11-28 05:52] LABS: HEMATOCRIT 31.4 % (37.0-47.0); HEMOGLOBIN 10.3 g/dL (12.0-16.0)
[2016-11-28] MEDS: BUSPAR PO SCH ×2 (08:23→21:42)
[2016-11-28] MEDS: XANAX PO SCH ×3 (08:23→21:42)
[2016-11-28] MEDS: NEURONTIN PO SCH ×3 (08:23→21:41)
[2016-11-28] MEDS: PERICOLACE PO SCH (08:23)
[2016-11-28] MEDS: PERIDEX MT SCH ×2 (08:23→21:41)
[2016-11-28] MEDS: CALTRATE 600 + D PO SCH (08:23)
[2016-11-28] MEDS: COLACE PO SCH ×2 (08:23→21:41)
[2016-11-28] MEDS: PLAQUENIL PO SCH ×2 (08:23→21:42)
[2016-11-28] MEDS: FLONASE NAS SCH ×2 (08:24→21:41)
--- NOTE | 2016-11-28 12:43 | PROGRESS NOTE ---
DATE: 11/28/2016 SUBJECTIVE: Ms. Ruby is status post revision, total knee replacement for an infection. OBJECTIVE: She is afebrile with stable vital signs. The incision is clean and dry. There is no evidence of DVT. ASSESSMENT AND PLAN: She is waiting transfer to [facility] tomorrow. One of her cultures is showing a possible gram-negative preliminary growth . I will ask Dr. Jaffe to review this and give us some recommendations regarding prophylactic antibiotics at this point. Will plan on her discharge tomorrow. cc: Nitin Wheeler MD
[2016-11-28] MEDS: MAXIPIME 2 GM/NS 2 GM/100 ML IVPB IV SCH (16:31)
--- NOTE | 2016-11-28 16:35 | CONSULTATION ---
DATE OF CONSULTATION: 11/28/2016 CONCLUSION: The patient is status post reimplantation of a left total knee arthroplasty. A culture taken from the knee during surgery is growing a gram-negative alek the identify of which is pending. Patient has a history of severe reaction to penicillin. This happened many years ago. Since then the patient has had Keflex and has tolerated it well. RECOMMENDATIONS: Based on the fact that the patient has tolerated Keflex well in the past, I am going to start the patient on cefepime 2 g IV every 12 hours. I have ordered that the nurse should watch the patient during the first dose of cefepime. DISCUSSION: The patient has been treated for a Methicillin-resistant Staphylococcus aureus infected left total knee arthroplasty. She has completed her prolonged antibiotics and was brought to the hospital to have placement of a new prosthesis. Cultures taken at the time of surgery showed in one culture a gram-negative alek. The patient reports that her knee was not swollen and was not draining prior to surgery, and she was not having any fever. Laboratory studies thus far show a hemoglobin and hematocrit of 10.3 and 31.4. The patient's creatinine is 1.2. The GFR is 46. The glucose was 208. The Gram stain of the material obtained at surgery showed no bacteria but as mentioned above, the culture is growing a gram-negative alek. The organism only grew in the broth media. 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 REVIEW OF SYSTEMS: Eyes and ears: She denies any difficulty hearing or seeing. Neck: No stiffness. Respiratory: No cough or shortness of breath. Cardiovascular: No chest pain or palpitations. Gastrointestinal: No nausea or vomiting. The patient states that it has been 2-3 days since has passed a stool. Genitourinary: No dysuria or flank pain. Bones, joints, muscles: The patient's left knee does have some pain in it but she is getting relief from her medications. Neurologic: No seizures. No motor or sensory deficit. Integument: No rashes. Endocrine: Patient has hypothyroidism and diabetes mellitus. FAMILY HISTORY: Positive for diabetes mellitus, hypertension, and myocardial infarction. SOCIAL HISTORY: The patient is . She has a dog as a pet. ALLERGIES: She is allergic to penicillin as mentioned above. She is also allergic to sulfa. HOME MEDICATIONS: Synthroid, Plaquenil, BuSpar, Xanax, fluticasone, Caltrate, Senokot, Requip and Neurontin. PHYSICAL EXAMINATION: Vital Signs: Temperature is 98.7 degrees, pulse 85, respirations 20, blood pressure 164/78. Patient is 5 feet 7 inches tall. She weighs 308 pounds. General: This is an obese, middle-aged female. She is in no acute distress. Head, eyes, ears, nose, throat: She can hear my spoken words and see near objects. No drainage noted from the nose or ears. Neck: No meningismus. Thorax: Patient has an increased AP diameter of the chest. Lungs: Clear to auscultation. Cardiovascular: Regular heart rate. Abdomen: Soft and nontender. Extremities: The patient has a peripheral IV in now. The site is not erythematous or swollen. The patient's left knee has a large dressing around it. The dressing is intact. Neurologic: Patient is alert. She can move her extremities. There is no tremor. Her sensation was intact to touch. Her memory regarding her medical history was intact. PAST MEDICAL HISTORY: Positive for systemic lupus, hypothyroidism, diabetes mellitus, obesity, fibromyalgia, Raynaud's phenomenon, proteinuria and rheumatoid arthritis. PREVIOUS HOSPITALIZATIONS AND OPERATIONS: Patient had 1 labor and delivery, 1 miscarriage. She has also had breast reduction. Placement of a left total knee arthroplasty and subsequent removal of it. Surgery on the right foot. She has had carpal tunnel surgery. Surgery on the left ankle. INFECTIOUS DISEASE HISTORY: Positive for pneumonia and UTI. Thank you for the consultation. cc: MD Nitin Ramachandran MD
[2016-11-28] MEDS: REQUIP PO SCH (21:41)
[2016-11-29] MEDS: MAXIPIME 2 GM/NS 2 GM/100 ML IVPB IV SCH (04:36)
[2016-11-29] MEDS: SYNTHROID PO SCH ×2 (05:38→06:37)
[2016-11-29] MEDS: XARELTO PO SCH (05:38)
[2016-11-29 05:39] LABS: HEMATOCRIT 33.3 % (37.0-47.0); HEMOGLOBIN 10.7 g/dL (12.0-16.0)
[2016-11-29] MEDS: NORCO-10 PO PRN ×3 (05:50→13:00)
--- NOTE | 2016-11-29 08:30 | PROGRESS NOTE ---
DATE: 11/29/2016 SUBJECTIVE: Ms. Ruby is seen today for status post revision knee replacement. She has undergone evaluation by Dr. Jaffe. He wants to await final results of cultures prior to transfer to rehab. OBJECTIVE: At the present time, she is afebrile with stable vital signs. The incision is clean and dry and healing appropriately. There are no obvious active signs of infection. ASSESSMENT AND PLAN: Her cultures showed what appears to be an Escherichia coli. We defer further management of this to Dr. Jaffe. She is awaiting transfer to rehabilitation pending infectious disease recommendations by Dr. Jaffe. cc: Nitin Wheeler MD
[2016-11-29] MEDS: FLONASE NAS SCH ×2 (08:42→21:02)
[2016-11-29] MEDS: COLACE PO SCH ×2 (08:42→21:02)
[2016-11-29] MEDS: PERIDEX MT SCH ×2 (08:42→21:02)
[2016-11-29] MEDS: BUSPAR PO SCH ×2 (08:43→21:02)
[2016-11-29] MEDS: PLAQUENIL PO SCH ×2 (08:43→21:03)
[2016-11-29] MEDS: PERICOLACE PO SCH (08:44)
[2016-11-29] MEDS: NEURONTIN PO SCH ×3 (08:44→17:00)
[2016-11-29] MEDS: XANAX PO SCH ×3 (08:44→17:00)
[2016-11-29] MEDS: CALTRATE 600 + D PO SCH (08:44)
--- NOTE | 2016-11-29 15:30 | PROGRESS NOTE ---
DATE: 11/29/2016 PRESENT ILLNESS: The patient is status post reimplantation of a left total knee arthroplasty. A culture taken from the knee at surgery grew Escherichia coli. MEDICATIONS: Currently, the patient is receiving IV cefepime. PHYSICAL EXAMINATION: Vital Signs: Temperature is 98.4 degrees, pulse 83, respiration 22, blood pressure 145/63. General: The patient is obese. She is in no acute distress. Lungs clear to auscultation. Cardiovascular: Regular heart rate. Abdomen soft and nontender. Extremities: The left knee has a dressing on it. The dressing is intact. There is no visible erythema or drainage. LABORATORY DATA AND X-RAY: The culture from the knee as mentioned above, grew Escherichia coli. There is no new radiographic study today. The hemoglobin and hematocrit was 10.7 and 33.3 respectively. ASSESSMENT AND PLAN: Patient has an Escherichia coli infected left total knee arthroplasty. My plan is to treat the patient with Levaquin 500 mg p.o. daily for 6 weeks and then cut the dose down to 250 mg p.o. daily for a prolonged period of time. The patient is going to the rehab hospital. I have written for the Levaquin, as mentioned before, to be taken at the rehab facility. Also, I have electronically sent in a prescription for Levaquin 500 mg daily for 3 weeks. This has been electronically sent to the pharmacy that the patient wrote down she wanted it to be sent to, and that is [facility] in [place]. I plan to see the patient back in the office in 3 weeks. Patient's comorbidities include she is obese, she does have diabetes mellitus, as well as rheumatoid arthritis, fibromyalgia, and systemic lupus. cc: MD Nitin Ramachandran MD
[2016-11-29] MEDS: LEVAQUIN PO SCH (17:00)
[2016-11-29] MEDS: REQUIP PO SCH (21:02)
[2016-11-30] MEDS: SYNTHROID PO SCH (06:03)
[2016-11-30] MEDS: XARELTO PO SCH (06:04)
[2016-11-30] MEDS: PLAQUENIL PO SCH ×2 (10:25→23:13)
[2016-11-30] MEDS: COLACE PO SCH ×2 (10:25→23:14)
[2016-11-30] MEDS: BUSPAR PO SCH ×2 (10:25→23:13)
[2016-11-30] MEDS: XANAX PO SCH ×3 (10:25→17:21)
[2016-11-30] MEDS: CALTRATE 600 + D PO SCH (10:26)
[2016-11-30] MEDS: PERICOLACE PO SCH (10:26)
[2016-11-30] MEDS: LEVAQUIN PO SCH (10:27)
[2016-11-30] MEDS: NEURONTIN PO SCH ×3 (10:27→17:21)
[2016-11-30] MEDS: PERIDEX MT SCH ×2 (10:27→23:13)
--- NOTE | 2016-11-30 11:53 | DISCHARGE SUMMARY ---
ADMISSION DATE: 11/26/2016 DISCHARGE DATE: 11/30/2016 PROCEDURE ON 11/26/2016: Dr. Wheeler did a left total knee arthroplasty revision with explant of temporary spacer. HOSPITAL COURSE: Ms. Ruby has done well after her left knee revision. She has been in the hospital receiving IV antibiotics. Per Dr. Jaffe' request she is going to go on Levaquin p.o., and so she will not need a PICC line. She grew out E. Coli and Levaquin will cover that. So, she will be discharged on Levaquin pain medicine, and she will see Dr. Wheeler in clinic for follow up. DISPOSITION: To [facility]. cc: MD Nitin Cano MD
--- NOTE | 2016-11-30 13:00 | PROGRESS NOTE ---
DATE: 11/30/2016 SUBJECTIVE: Ms. Ruby is lying in bed this morning. Feeling okay. OBJECTIVE: Left lower extremity exam: Dressing is clean, dry, and intact. Not a lot of swelling to the knee overall. Not much tenderness to palpation at all to the calf. No swelling of the calf. She has good dorsiflexion and plantar flexion of the foot. Good sensation to light touch to the toes. ASSESSMENT: Status post left total knee revision. PLAN: Ms. Ruby will continue on Levaquin for antibiotic treatment per Dr. Jaffe' recommendations. She already has a room at [facility] and if we can get everything set up over the weekend, we can get her discharge. If not, she will be discharged Friday morning. cc: MD Nitin Cano MD
[2016-11-30] MEDS: FLONASE NAS SCH ×2 (13:11→23:12)
[2016-11-30] MEDS: NORCO-10 PO PRN (15:40)
[2016-11-30] MEDS: REQUIP PO SCH (23:13)
[2016-12-01 05:57] LABS: MANUAL DIFF NEEDED? NO
[2016-12-01 06:04] LABS: BASO% 0.5 % (0.0-0.8); EOS# 0.45 X1000 (0.0-0.7); EOS% 5.4 % (0.0-10.0); HEMATOCRIT 30.7 % (37.0-47.0); HEMOGLOBIN 10.2 g/dL (12.0-16.0); IMM GRAN# 0.06 X1000 (0.0-0.04); IMM GRAN% 0.7 % (0.0-0.5); LYMPH# 1.69 X1000 (1.2-3.4); LYMPH% 20.3 % (20.5-51.1); MCHC 33.2 g/dL (33-37); MCV 87.2 FL (81-99); MONO# 0.72 X1000 (0.11-0.59); MONO% 8.6 % (1.7-9.3); MPV 10.7 FL (7.4-10.4); NEUT% 64.5 % (42.2-75.2); PLT 247 X1000 (130-400); RBC 3.52 XMIL (4.2-5.4)
[2016-12-01] MEDS: SYNTHROID PO SCH (06:40)
[2016-12-01] MEDS: XARELTO PO SCH (06:40)
[2016-12-01] MEDS: FLONASE NAS SCH ×3 (09:58→21:10)
[2016-12-01] MEDS: COLACE PO SCH ×2 (09:58→21:12)
[2016-12-01] MEDS: PERICOLACE PO SCH (09:58)
[2016-12-01] MEDS: PLAQUENIL PO SCH ×2 (09:58→21:10)
[2016-12-01] MEDS: PERIDEX MT SCH ×2 (09:58→21:10)
[2016-12-01] MEDS: NEURONTIN PO SCH ×3 (09:59→16:47)
[2016-12-01] MEDS: CALTRATE 600 + D PO SCH (09:59)
[2016-12-01] MEDS: LEVAQUIN PO SCH (09:59)
[2016-12-01] MEDS: BUSPAR PO SCH ×2 (09:59→21:11)
[2016-12-01] MEDS: XANAX PO SCH ×3 (09:59→16:47)
--- NOTE | 2016-12-01 13:38 | PROGRESS NOTE ---
DATE: 11/30/2016 SUBJECTIVE: Ms. Ruby lying in bed this morning. Everything seems fairly well controlled pain- arreguin. OBJECTIVE: Left lower extremity exam. Dressing is clean, dry, and intact. She has good movement of the of the toes and foot. No calf tenderness. ASSESSMENT: Status post left revision total knee arthroplasty. PLAN: I think Ms. Ruby is doing really well. She could have gone yesterday but unfortunately they did not have any beds for her at [facility]. She has been getting up using the bedside toilet and has actually been doing fairly well with that. So more than likely she will be discharged to [facility] tomorrow. cc: MD Nitin Cano MD
[2016-12-01] MEDS: NORCO-10 PO PRN (14:32)
[2016-12-01] MEDS: REQUIP PO SCH (21:11)
[2016-12-02] MEDS: XARELTO PO SCH (06:32)
[2016-12-02] MEDS: SYNTHROID PO SCH (06:32)
--- NOTE | 2016-12-02 08:24 | PROGRESS NOTE ---
DATE: 12/02/2016 PRESENT ILLNESS: The patient has an Escherichia coli infected left total knee arthroplasty. MEDICATIONS: The patient is taking Levaquin in a dose of 500 mg p.o. daily. PHYSICAL EXAMINATION: Vital Signs: Temperature is 97.6 degrees, pulse 71, respirations 16, blood pressure 144/67. General: This is an obese, middle-aged female. She is in no acute distress. Lungs: Clear to auscultation. Cardiovascular: Regular heart rate. Abdomen: Soft and nontender. Extremities: The patient has bilateral leg edema. The patient's left knee incision has a dressing on it. The dressing is intact. There is no visible erythema. The dressing does not have any discoloration. LAB AND X-RAY: CBC today shows a white count of 8330, hemoglobin 10.2, and platelet count 247,000. Creatinine is 1.3. ASSESSMENT AND PLAN: The patient is going to rehab today. My plan is to treat her for 6 weeks with Levaquin. I have requested that she see me in the office at 3 weeks and then I will plan to see her 3 weeks after that, at which time we will decrease the dose of Levaquin to 250 mg daily on a chronic basis because the patient's left total knee arthroplasty is infected with E. coli. COMORBIDITIES: Include obesity, diabetes mellitus, rheumatoid arthritis, and systemic lupus. cc: MD Nitin Ramachandran MD
[2016-12-02] MEDS: PLAQUENIL PO SCH (10:19)
[2016-12-02] MEDS: COLACE PO SCH (10:19)
[2016-12-02] MEDS: PERIDEX MT SCH (10:19)
[2016-12-02] MEDS: BUSPAR PO SCH (10:20)
[2016-12-02] MEDS: NEURONTIN PO SCH ×2 (10:20→14:08)
[2016-12-02] MEDS: CALTRATE 600 + D PO SCH (10:20)
[2016-12-02] MEDS: PERICOLACE PO SCH (10:20)
[2016-12-02] MEDS: LEVAQUIN PO SCH (10:20)
[2016-12-02] MEDS: XANAX PO SCH ×2 (10:20→14:08)
[2016-12-02] MEDS: FLONASE NAS SCH (10:21)
[2016-12-02] MEDS: NORCO-10 PO PRN (11:06)
[2016-12-02 11:55] VITALS: BP 143/64
== END 2016-12-02 14:36 ==
LOC: SURHOLD 02:26 → 4N 15:21
PROVIDERS: ADMIT Orthopaedic Surgery Adult Reconstructive Orthopaedic Surgery; ATTEND Orthopaedic Surgery Adult Reconstructive Orthopaedic Surgery